=== PATIENT | female | born 1955 | race African-American/Black ===

== ENCOUNTER 2021-07-07 14:30 | Outpatient (RCR) | payer MEDICARE, SELFPAY ==
[2021-06-09 09:12] VITALS: BMI 32.2
[2021-06-09 09:32] VITALS: BMI 32.2
== END 2021-07-26 14:29 | disposition home or self-care (01) ==
LOC: ANHDMC 14:30
DX: E11.65 Type 2 diabetes mellitus with hyperglycemia (principal); Z71.89 Other specified counseling; Z71.3 Dietary counseling and surveillance
CPT/HCPCS: 97802; 97803; G0108; G0109

== ENCOUNTER 2021-09-30 14:35 | Outpatient (RCR) | payer MEDICARE, SELFPAY | END 2021-10-08 13:20 | disposition home or self-care (01) | LOC: ANHDMC 14:35 | PROVIDERS: PCP Internal Medicine Gastroenterology; Visit Provider Nurse Practitioner | DX: E11.65 Type 2 diabetes mellitus with hyperglycemia (principal); Z71.89 Other specified counseling | CPT/HCPCS: G0109 ==

== ENCOUNTER 2023-10-16 14:39 | Outpatient (CLI) | payer MEDICARE, SELFPAY ==
--- NOTE | ~2023-10-16 | DEXA_ITS ---
Bone Density Report Name: MEGAN MCCOY Age: 67 Sex: Female Ethnicity: White Date of : 1955 Indication: postmenopausal; screening for osteoporosis; hysterectomy; Referring Provider: RICHIE ESPINOSA Study: Bone densitometry was performed. Exam Date: October 16, 2023 Accession number: [id number] Bone Density: Region BMD T-score Z-score Classification AP Spine(L1-L4) 0.782 -2.4 -0.4 Osteopenia Femoral Neck (Left) 0.551 -2.7 -1.0 Osteoporosis Total Hip (Left) 0.688 -2.1 -0.6 Osteopenia Femoral Neck (Right) 0.533 -2.8 -1.1 Osteoporosis Total Hip (Right) 0.636 -2.5 -1.1 Osteoporosis Total Hip Mean 0.662 -2.3 -0.9 Osteopenia World Health Organization criteria for BMD impression classify patients as: Normal (T-score at or above -1.0), Osteopenia (T-score between -1.0 and -2.5), or Osteoporosis (T-score at or below -2.5). 10-year Fracture Risk: FRAX not reported because: Some T-score for Spine Total or Hip Total or Femoral Neck at or below -2.5 Clinical Information Provided by Patient: Has used the following medications: Vitamin D Has the following medical conditions: Hysterectomy Patient maximum height was 62.0 Does not regularly consume dairy products Drinks caffeinated beverages Onset of menses at age 8 Number of children 1 Impression: The patient has osteoporosis, based on the Right Femoral Neck T-score. Discussion: INCREASED RISK OF FRACTURE. BONE DENSITY IS UNDESIRABLY LOW AT ONE OR MORE SKELETAL SITES, CONSISTENT WITH POSTMENOPAUSAL OSTEOPOROSIS. This patient's lowest T-score meets the World Health Organization's (WHO) criteria for osteoporosis at one or more sites (T-score -2.5 or below). In untreated patients, the risk of osteoporotic fracture increases approximately two-fold for each 1.0 SD decrease in T-score. Low bone density is not the only risk factor for fracture; also consider factors such as patient's age, frailty or poor health, risk of falling, risk of injury, previous osteoporotic fracture, family history of osteoporosis, cigarette smoking, low body weight, etc. Not everyone with low bone mineral density has osteoporosis; osteomalacia and other metabolic bone disorders should also be considered. Patients who have osteoporosis should be evaluated for specific diseases and conditions (secondary causes) that may cause or contribute to bone loss. The [place] [employer] Clinical Endocrinologists (AACE) and National Osteoporosis Foundation (NOF) recommend pharmacologic intervention for all postmenopausal women whose T-score is in this range. The patient should follow a healthful lifestyle (good nutrition with adequate calcium and vitamin D, and appropriate weight-bearing exercise). Follow-Up: Consider a repeat BMD and Vertebral Fracture Assessment (VFA) exam in 2 years or soone
== END 2023-10-16 14:40 | disposition home or self-care (01) ==
LOC: ANHIMG 14:42
PROVIDERS: PCP Internal Medicine Gastroenterology; Visit Provider Internal Medicine Endocrinology, Diabetes & Metabolism
DX: Z78.0 Asymptomatic menopausal state (principal)
CPT/HCPCS: 77080

== ENCOUNTER 2024-11-15 07:41 | Outpatient (CLI) | payer MEDICARE, SELFPAY ==
--- NOTE | ~2024-11-15 | NM_ITS ---
EXAMINATION: NM parathyroid w imaging DATE: 11/15/2024 16:04 INDICATION: Hyperparathyroidism TECHNIQUE: 20.3 mCi Tc99m sestamibi (Cardiolite) was administered by intravenous route. Anterior images of the neck were obtained at 10 minutes and 2 hours. Additional delayed SPECT imaging was obtained and reformatted in coronal, sagittal and axial planes. COMPARISON: None. FINDINGS/IMPRESSION: There is no focus of persistent activity in the area of the thyroid or mediastinum to suggest parathyroid adenoma. Reviewed, dictated and finalized at location A.
--- OUTSIDE RECORDS SUMMARY | 2024-11-15 07:46 | XMS_ITS | Encounter Summary ---
Author Organization [facility] Address [address] [place] [address] Care Team Providers Care Purchase Request Editor Name Role Phone Unavailable Primary Care Provider Unavailabl e Encounter Details Date Type Department Care Team (Late st Contact Info) Description 04/09/2003 Outpatient Historical [facility] [place] [facility] [address] [place] [address] Jason Dao MD [address] [facility] [address] [place] [address] Social History Tobacco Use Types Packs/Day Years Used Date Smoking Tobacco: Never Assessed Comments Unknown Sex and Gender Information Value Date Recorded Sex Assigned at Not on file Legal Sex Female 2:56 AM INVISIBLE BRACES ORTHODONTIST Gender Identity Not on file Sexual Orientation Not on file documented as of this encounter Plan of Treatment Not on file documented as of this encounter Visit Diagnoses Not on filedocumented in this encounter
--- OUTSIDE RECORDS SUMMARY | 2024-11-15 07:46 | XMS_ITS | Encounter Summary ---
Author Organization [facility] Address [address] [place] [address] Care Team Providers Care Form Setter Steel Forms Name Role Phone Vijay Grier MD Unavailable [phone] Iggy Grier MD Primary Care Provider [phone] Reason for Visit * Reason Onset Date Comments MEDICATION REFILL 01/16/2023 Encounter Details Date Type Department Care Team (Late st Contact Info) Description 01/16/2023 Telephone [facility] - GAS LINE SERVICER [address] [facility] [address] [place] [address] Bethany Barney MD [address] [facility] [address] [place] [address] MEDICATION REFILL Social History Tobacco Use Types Packs/Day Years Used Date Smoking Tobacco: Never Smokeless Tobacco: Never Alcohol Use Standard Drinks/Week Comments No 0 (1 standard drink = 0.6 oz pur e alcohol) Comments No Sex and Gender Information Value Date Recorded Sex Assigned at Female 04/05/2021 11:38 AM OFFICE ASSOCIATE Legal Sex Female 6:19 AM OFFICE ASSOCIATE Gender Identity Female 04/05/2021 11:38 AM OFFICE ASSOCIATE Sexual Orientation Straight 04/05/2021 11 :38 AM OFFICE ASSOCIATE documented as of this encounter Miscellaneous Notes * Telephone Encounter - Bethany Barney MD - 01/17/2023 3:25 PM OFFICE ASSOCIATE Reviewed and agree. Bethany Barney MD CE ASSOCIATE * Telephone Encounter - Beto Salinas RN - 01/16/2023 11:41 AM OFFICE ASSOCIATE RN returned call to pt. Pt wanting refill on outbreak dose for Valtrex. Needs it to be 90d supply since sent to [facility] Refill Request Approved Elizabeth Hickey Nilorosanna CARINA:02/03/21Jan due: NOV scheduled: 04/12/2023 LRF: 05/06/2022 Qty Disp:18 # of refills: 1 Allergies: Allergies Allergen Reactions ??? Sulfa Drugs Rash Pended Medication Order: Requested Prescriptions Signed Prescriptions Disp Refills ??? valACYclovir (Valtrex) 500 MG tablet 18 tablet 0 Sig: TAKE 1 TABLET BY MOUTH TWICE DAILY FOR 3 DAYS DURING OUTBREAKS Authorizing Provider: BETHANY BARNEY Ordering User: BETO SALINAS CE ASSOCIATE * Telephone Encounter - Pham Fuentes - 01/16/2023 11:32 AM CST Pt took next available of 24 for her annual visit and for as med check. She is needing a med refill until then.Would like someone to reach out to inform her if the medication can be filled untilthen CE ASSOCIATE documented in this encounter Plan of Treatment Upcoming Encounters Date Type Department Care Team (Late st Contact Info) Description 04/22/2025 10:00 AM OFFICE ASSOCIATE Office Visit [facility] - GAS LINE SERVICER [address] [facility] [address] [place] [address] Bethany Barney MD [address] [facility] [address] [place] [address] documented as of this encounter Visit Diagnoses Not on filedocumented in this encounter Care Teams Form Setter Steel Forms Relationship Specialty Start Date End Date Vijay Grier MD PCP - OBGYN Obstetrics 06/29/12 Iggy Grier MD PCP - General Gastroenterology 07/25/13 documented as of this encounter
--- OUTSIDE RECORDS SUMMARY | 2024-11-15 07:46 | XMS_ITS | Encounter Summary ---
Author Organization [facility] Address [address] [place] [address] Care Team Providers Care Transmission Mechanic Name Role Phone Iggy Grier MD Primary Care Provider Unavail able Facundo Mendoza MD Unavailable [phone] Skyla Thompson MD Unavailable [phone] Denny Martinez MD Unavailable [phone] Marvel Del Rio MD Unavailable [phone] Maria G Sauer MD Unavailable [phone] Fernandez King MD Primary Care Provider [phone] Encounter Details Date Type Department Care Team (Late st Contact Info) Description 05/18/2018 [facility] at [address] [address] Kenyetta Coe MA Social History Tobacco Use Types Packs/Day Years Used Date Smoking Tobacco: Former Smokeless Tobacco: Never Alcohol Use Standard Drinks/Week Comments No 0 (1 standard drink = 0.6 oz pur e alcohol) AUDIT-C Answer Date Recorded Frequency of Alcohol Consumption Never 05/18/2018 Average Number of Drinks Not on file 019 Frequency of Binge Drinking Not on file 10/2018 Comments Unknown Sex and Gender Information Value Date Recorded Sex Assigned at Female 05/06/2024 10:24 AM TOTER Legal Sex Female 8:08 PM CDT Gender Identity Not on file Sexual Orientation Not on file documented as of this encounter Functional Status documented as of this encounter Plan of Treatment Upcoming Encounters Date Type Department Care Team (Late st Contact Info) Description 12/12/2024 11:40 AM CDT Office Visit [facility] [address] [place] [address] Parish Merritt MD [address] [facility] [place] [address] 01/02/2025 11:30 AM CDT Office Visit [facility] [address] [facility] [place] [address] Karlee Rangel APRN [address] [facility]. [address] [place] [address] 02/12/2025 9:20 AM TOTER Office Visit [facility] Family Medicine - [place] [address] [place] [address] Fernandez King MD [address] [place] [address] documented as of this encounter Procedures Procedure Name Priority Date/Time Associated Diagnosis Comments CBC (OUTSIDE LAB) Routine 08/28/2017 FREE T3 Routine 08/28/2017 COMPREHENSIVE METABOLIC PANEL Routine 08/28/2017 LIPID PANEL Routine 08/28/2017 HEMOGLOBIN, GLYCOSYLATED Routine 08/28/2017 documented in this encounter Results * COMPREHENSIVE METABOLIC PANEL (08/28/2017) Pathologist [facility] SODIUM S/P/B 141 POTASSIUM S/P/B 4.2 CO2 25 CHLORIDE S/P/B 99 GLUCOSE 135 mg/dL CALCIUM S/P/B 10.0 BUN 13 CREATININE S/P/B 0.81 0.5 - 1.0 EGFR AFR. AMER. 90 <=90 EGFR NON-AFR. AMER. 78 <=90 ALKALINE PHOSPHATASE S/P/B 129 ALT 42 AST 29 BILIRUBIN TOTAL S/P/B 0.4 ALBUMIN S/P/B 4.5 3.5 - 5.0 TOTAL PROTEIN S/P/B 7.4 GLOBULIN 2.9 08/28/2017 us Doc [facility] Final Result * CBC (OUTSIDE LAB) (08/28/2017) [facility] WBC 8.4 HGB 13.7 HCT 42.5 PLT 287 08/28/2017 us Doc [facility]-OUTSIDE/ABSTRACTED Final Result * LIPID PANEL (08/28/2017) [facility] CHOLESTEROL 155 HDL 32 TRIGLYCERIDES 324 DIRECT LDL 73 08/28/2017 us Doc [facility] Final Result * HEMOGLOBIN, GLYCOSYLATED (08/28/2017) [facility] HGB A1C 6.9 08/28/2017 us Doc [facility] Final Result * FREE T3 (08/28/2017) [facility] FREE T3 7.5 08/28/2017 us Doc [facility] Edited Resul t - Final documented in this encounter Visit Diagnoses Not on filedocumented in this encounter Care Teams Transmission Mechanic Relationship Specialty Start Date End Date Iggy Grier MD PCP - General INTERNAL MEDICINE 04/25/18 11/12/24 Fernandez King MD [facility] [place] [phone] PCP - General FAMILY PRACTICE 11/13/24 Facundo Mendoza MD [facility] CARDIOVASCULAR DISEASE 05/09/18 04/17/19 Skyla Thompson MD Consulting Physician ENDOCRINOLOGY 06/11/18 08/10/18 Denny Martinez MD [address] [address] Consulting Physician ENDOCRINOLOGY 10/11/18 Marvel Del Rio MD [address] [facility] [address] [place] [phone] [facility] CARDIOVASCULAR DISEASE 04/18/19 Maria G Sauer MD [address] [facility] [address] [place] [phone] INTERNAL MEDICINE 10/30/23 documented as of this encounter
--- OUTSIDE RECORDS SUMMARY | 2024-11-15 07:46 | XMS_ITS | Encounter Summary ---
Author Organization [facility] Address [address] [place] [address] Care Team Providers Care Director Of Women'S Services Name Role Phone Vijay Grier MD Unavailable [phone] Iggy Grier MD Primary Care Provider [phone] Reason for Visit * Reason Comments Refill Request Encounter Details Date Type Department Care Team (Late Contact Info) Description 08/26/2019 Refill [facility] [address] [place], [place] [id number] Bethany Barney MD [address] [address] Refill Request Social History Tobacco Use Types Packs/Day Years Used Date Smoking Tobacco: Never Smokeless Tobacco: Never Alcohol Use Standard Drinks/Week Comments No 0 (1 standard drink = 0.6 oz pur e alcohol) Comments No Sex and Gender Information Value Date Recorded Sex Assigned at Female 04/05/2021 11:38 AM REAL ESTATE SPECIALIST Legal Sex Female 6:19 AM REAL ESTATE SPECIALIST Gender Identity Female 04/05/2021 11:38 AM REAL ESTATE SPECIALIST Sexual Orientation Straight 04/05/2021 11 :38 AM REAL ESTATE SPECIALIST documented as of this encounter Plan of Treatment Upcoming Encounters Date Type Department Care Team ([facility] Contact Info) Description 04/22/2025 10:00 AM REAL ESTATE SPECIALIST Office Visit [facility] - HEALTH SAFETY COORDINATOR [address] [facility] [address] [place] [address] Bethany Barney MD [address] [facility] [address] [place] [address] documented as of this encounter Visit Diagnoses Not on filedocumented in this encounter Care Teams Director Of Women'S Services Relationship Specialty Start Date End Date Vijay Grier MD PCP - OBGYN Obstetrics 06/29/12 Iggy Grier MD PCP - General Gastroenterology 07/25/13 documented as of this encounter
--- OUTSIDE RECORDS SUMMARY | 2024-11-15 07:46 | XMS_ITS | Encounter Summary ---
Author Organization [facility] Address [address] [place] [address] Care Team Providers Care Blind Aide Name Role Phone Unavailable Primary Care Provider Unavailabl e Encounter Details Date Type Department Care Team (Late st Contact Info) Description 06/09/2003 Outpatient Historical [facility] Internal Medicine [address] [place] [address] Jason Dao MD [address] [facility] [address] [place] [address] Social History Tobacco Use Types Packs/Day Years Used Date Smoking Tobacco: Never Assessed Comments Unknown Sex and Gender Information Value Date Recorded Sex Assigned at Not on file Legal Sex Female 2:56 AM PRESSING MACHINE TENDER Gender Identity Not on file Sexual Orientation Not on file documented as of this encounter Plan of Treatment Not on file documented as of this encounter Visit Diagnoses Not on filedocumented in this encounter
--- OUTSIDE RECORDS SUMMARY | 2024-11-15 07:46 | XMS_ITS | Encounter Summary ---
Author Organization [facility] Address [address] [place] [address] Care Team Providers Care Asbestos Wire Finisher Name Role Phone Unavailable Primary Care Provider Unavailabl e Encounter Details Date Type Department Care Team (Late st Contact Info) Description 04/09/2003 Outpatient Historical [facility] Internal Medicine [address] [place] [address] Jason Dao MD [address] [facility] [address] [place] [address] Social History Tobacco Use Types Packs/Day Years Used Date Smoking Tobacco: Never Assessed Comments Unknown Sex and Gender Information Value Date Recorded Sex Assigned at Not on file Legal Sex Female 2:56 AM MEDICAL BILLING REPRESENTATIVE Gender Identity Not on file Sexual Orientation Not on file documented as of this encounter Plan of Treatment Not on file documented as of this encounter Visit Diagnoses Not on filedocumented in this encounter
--- OUTSIDE RECORDS SUMMARY | 2024-11-15 07:46 | XMS_ITS | Clinical Summary ---
Author Organization [place] [address] [facility] Address [address] [place] [address] Care Team Providers Care Blasting Contract Man Name Role Phone Iggy Grier MD Primary Care Provider Allergies Active Allergy Reactions Criticality Noted Date Comments Lisinopril Shortness of breath High 05/24/2016 Breathing Difficulty Sulfa (Sulfonamide Antibiotics) Rash Reaction: Rash, Medications dilTIAZem CD/XR/XT (CARTIA XT) 120 mg 24 hr capsule Take 1 capsule (120 mg total) by mouth daily Active fluticasone propionate (FLONASE) 50 mcg/actuation nasal spray Administer 1 spray into affected nostril(s) as needed Active nitroglycerin (NITROSTAT) 0.[address] 1 tablet (0.4 mg total) under the tongue daily 9 Active isosorbide mononitrate ER (IMDUR) 30 mg 24 hr tablet Take 2 tablets (60 mg total) by mouth daily 1 Active semaglutide (Ozempic) 0.25 mg or 0.5 mg(2 mg/1.5 mL) pen injector injection Ozempic 0.25 mg or 0.5 mg (2 mg/1.5 mL) subcutaneous pen injector INJECT 0.5 MG UNDER THE SKIN EVERY WEEK DIRECTED 2 Active aspirin 81 mg enteric coated tablet Take 1 tablet (81 mg total) by mouth daily [address] (PROTONIX) 40 mg EC tablet Active valACYclovir (VALTREX) 500 mg tablet as needed 4 Active atorvastatin (LIPITOR) 40 mg tablet 4 Active Accu-Chek Janet Plus test strp strip 4 Active Accu-Chek Fastclix Lancet Drum misc 4 Active albuterol HFA (ProAir HFA) 90 mcg/actuation inhaler Inhale 2 puffs every 4 (four) hours as needed for wheezing or shortness of breath 8.5 g 5 4 025 Active acetaminophen (TYLENOL) 325 mg tabletIndication s:Spinal stenosis of lumbar region with neurogenic claudication Take 2 tablets (650 mg total) by mouth every 4 (four) hours as needed for pain 4 Active HYDROcodone-acet aminophen (NORCO) 5-325 mg per tabletIndication s:Spinal stenosis of lumbar region with neurogenic claudication Take 1 tablet by mouth every 4 (four) hours as needed for pain 30 tablet 4 Active Additional Information Patient not taking.Reported on 07/22/2024 levothyroxine (Synthroid) 50 mcg tabletIndication s:Hypothyroidism following radioiodine therapy Take 1 tablet (50 mcg total) by mouth daily 30 tablet 4 Active liothyronine (CYTOMEL) 5 mcg tabletIndication s:Hypothyroidism following radioiodine therapy Take 1 tablet (5 mcg total) by mouth daily 30 tablet 4 Active losartan (COZAAR) 100 mg tabletIndication s:Essential (primary) hypertension Take 1 tablet (100 mg total) by mouth daily 30 tablet 4 Active calcium carbonate-vitami n D3 1,250mg (500mg elemental) - 5 mcg (200 units) per tablet Take by mouth 4 Active methylPREDNISolo ne (MEDROL DOSEPACK) 4 mg Dosepack FOLLOW PACKAGE DIRECTIONS 5 Active methylPREDNISolo ne (MEDROL) 4 mg tablet Take 1 tablet (4 mg total) by mouth 5 Active Active Problems Problem Noted Date Diagnosed Date Lung nodules 07/22/2024 History of myocardial infarction 12/19/2023 Spinal stenosis 12/19/2023 Assessment & Plan (12/25/2023 10:46 AM CDT): Status post extensive laminectomy, decompression, fusion to lumbar spine. Pain is well controlled with p.r.n. Tylenol, p.r.n. [place]. Incision stable. Pt felt stable for discharge to home with home health. Follow up with NS as scheduled Assessment & Plan (12/20/2023 2:12 PM CDT): Status post extensive laminectomy, decompression, fusion to lumbar spine. Pain is well controlled with p.r.n. Tylenol, p.r.n. [place]. Patient has been on Lyrica and gabapentin in the past but did not like the way it made her feel and did not find that it was beneficial. Incision is stable, she is making progress in therapy. Patient has a follow-up with surgeon on 12/27/2023 Assessment & Plan (12/19/2023 8:30 AM CDT): She has recently completed a bilateral L3 laminectomy and a redo of an L4 laminectomy. We will continue Tylenol 650 mg every 6 hours p.r.n. pain and [place] 1 tablet every 4 hours p.r.n. breakthrough pain. We will consult Physical and Occupational therapy to evaluate, advised, and treat. Our goal will be a safe transfer to the community setting following improvement Shortness of breath 07/18/2023 Diabetic peripheral neuropathy 04/26/2021 Essential (primary) hypertension 04/06/2020 Assessment & Plan (12/25/2023 10:40 AM CDT): BP stable, continue losartan 100 mg daily, isosorbide 60 mg daily, diltiazem 120 mg q.h.s. Assessment & Plan (12/20/2023 1:50 PM CDT): Blood pressure is well controlled, continue losartan 100 mg daily, isosorbide 60 mg daily, diltiazem 120 mg q.h.s. Assessment & Plan (12/19/2023 8:23 AM CDT): Chronic stable. Continue diltiazem 120 mg HS, losartan 100 mg daily Osteoporosis 12/12/2018 Assessment & Plan (12/19/2023 8:24 AM CDT): Chronic and stable. Continue calcium with vitamin-D and cholecalciferol Hypothyroidism following radioiodine therapy 10/2018 Assessment & Plan (12/25/2023 10:42 AM CDT): Stable, continue levothyroxine and liothyronine Assessment & Plan (12/19/2023 8:24 AM CDT): Chronic and stable. Continue levothyroxine and Cytomel Mixed hyperlipidemia 05/18/2018 Assessment & Plan (12/19/2023 8:23 AM CDT): Chronic stable. Dietary to follow. Continue atorvastatin 40 mg daily Anxiety 02/26/2015 Assessment & Plan (12/25/2023 10:44 AM CDT): Per pt, she does not use diazepam, will stop Assessment & Plan (12/20/2023 1:50 PM CDT): Mood stable, continue diazepam p.r.n., we will DC after 14 days if there is no use. Assessment & Plan (12/19/2023 8:25 AM CDT): Chronic and stable. Continue diazepam 5 mg every 8 hours p.r.n. Gastroesophageal reflux disease 02/26/2015 Assessment & Plan (12/25/2023 10:43 AM CDT): Pt wants omeprazole stopped, pt denies symptoms Assessment & Plan (12/19/2023 8:25 AM CDT): Chronic and stable continue omeprazole Diabetes mellitus 02/26/2015 Assessment & Plan (12/25/2023 10:41 AM CDT): A1c 7.3. BS controlled, continue ozempic at home. Stop SSI at discharge Assessment & Plan (12/19/2023 8:25 AM CDT): Chronic and currently stable. Monitor point of care glucose and follow up labs were ordered. Continue insulin lispro and semaglutide Disease of thyroid gland 02/26/2015 Weakness 02/26/2015 Assessment & Plan (12/19/2023 8:30 AM CDT): I endorse admission to fdc care. The patient is at risk of injury, illness and a requirement for a higher level of care without this service. The patient needs assistance from the nurses and care team for all activities of daily living including dressing, hygeine of person and toilet, safe transfer and mobility, dietary needs, medication administration, and grooming. The patient will need physical and occupational therapy to progress to a safer level of care. 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 Continue statin, imdur, BP management Assessment & Plan (12/19/2023 8:23 AM CDT): Chronic stable. Continue atorvastatin, Imdur Angina pectoris 02/26/2015 Neuropathic pain syndrome (non-herpetic) 015 Chronic back pain 02/26/2015 Chronic pain 02/26/2015 Arthropathy of lumbar facet joint 02/26/2015 Degeneration of intervertebral disc of lumbar re gion 02/26/2015 Lumbar radiculopathy 02/26/2015 Assessment & Plan (12/19/2023 8:30 AM CDT): See plan comments spinal stenosis Solitary lung nodule Resolved Problems Problem Noted Date Diagnosed Date Resolved Date Dyslipidemia 04/26/2021 12/19/2023 Encounters Date Type Department Care Team Description 10/25/2024 Orders Only [facility] Medicine Pulmonary [address] 8[address] [place] [address] [place] [address] Barrington Bailey MD Lung nodules (Primary Dx); Mild intermittent asthma without complication; Shortness of breath 10/24/2024 12:20 PM CDT - 10/24/2024 11:59 PM CDT Hospital Encounter [facility] [address] [place] [address] Barrington Bailey MD Lung nodules; Shortness of breath Discharge Disposition: Discharge to home or self care 10/24/2024 Telephone [facility] Medicine Pulmonary [address] [place] [address] Barrington Bailey MD from Last 3 Months Surgical History Surgery Date Site/Laterality Comments [place] CORRJ HLX VLGS BNCTY SESM DC RESCJ PROX PHLX BASE Bunion Correction By Cheilectomy - (Added by Conv) [place] TOTAL ABDOMINAL HYSTERECT W/WO RMVL TUBE OVARY Hysterectomy - (Added by Conv) BACK SURGERY Back Surgery - (Added by Conv) [place] NJX AA&/STRD TFRML EPI LUMBAR/SACRAL 1 LEVEL Corticosteroid Inj Transforaminal Approach Lumbar W/ Fluoroscopic Guidance - (Added by Conv) NERVE BLOCK Nerve Block Paravertebral Facet Joint - 05/18/15- Lumbar Medial Branch Block, Bilateral, L3, L4, L5, S1. (Added by Conv) Medical History Medical History Date Comments Allergic rhinitis GERD (gastroesophageal reflux disease) Sinusitis Thyroid disease Family History Medical History Relation Name Comments Diabetes Maternal Grandfather Diabetes Maternal Grandmother Diabetes Mother Diabetes Sister Relation Name Status Comments Maternal Grandfather Maternal Grandmother Mother Sister Social History Tobacco Use Types Packs/Day Years Used Date Smoking Tobacco: Never Smokeless Tobacco: Never Tobacco Cessation:Counseling Given: Not Answered Alcohol Use Standard Drinks/Week Comments Never 0 (1 standard drink = 0.6 oz pur e alcohol) AUDIT-C Answer Date Recorded Frequency of Alcohol Consumption Never 01/04/2019 Average Number of Drinks Not on file 019 Frequency of Binge Drinking Not on file 12/12 Comments Unknown Sex and Gender Information Value Date Recorded Sex Assigned at Not on file Legal Sex Female 1:00 AM 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 Gender Identity Female 06/01/2022 8:10 PM CDT Sexual Orientation Not on file Obstetrics History Last Filed Vital Signs Vital Sign Reading Time Taken Comments Blood Pressure 173/81 07/22/2024 9:28 AM CDT fee ls ok Pulse 59 07/22/2024 9:28 AM CDT Temperature 36 C (96.8 F) 07/22/2024 9:28 AM CDT Respiratory Rate 18 07/22/2024 9:28 AM CDT Oxygen Saturation 98% 07/22/2024 9:28 AM CDT Inhaled Oxygen Concentration - - Weight 73.5 kg (162 lb) 07/22/2024 9:28 AM CDT Height 156.2 cm (5' 1.5) 07/22/2024 9:28 AM CDT Body Mass Index 30.11 07/22/2024 9:28 AM CDT Plan of Treatment Health Maintenance Due Date Last Done Comments Albumin Creatinine Ratio, Urine 1954 Colon Cancer Screening-Colonoscopy 1954 Depression Screening 1954 Fall Risk Assessment 1954 Hemoglobin A1C 1954 Hepatitis C Screening 1954 Dilated Eye Exam 1954 Foot Exam 1954 DTaP/Tdap/Td Vaccine (1 - Tdap) 1965 Hepatitis B Screening 1972 Pneumococcal vaccine 65+ (1 of 2 - PCV) 1973 Zoster Vaccine (1 of 2) 2004 Well Visit 65+ 10/29/2019 Osteoporosis Screening-Bone Density Scan 10/01/2020 10/01/2018, 10/01/2018 Lipid Panel 07/04/2024 07/05/2023, 04/01/2020 Covid-19 Vaccine (3 - 2024-2 6 season) 2024 05/26/2020, 05/01/2020 Influenza Vaccine (#1) 2024 eGFR 12/21/2024 12/22/2023 Breast Cancer Screening-Mammogram 05/24/2025 05/24/2024, 05/24/2024, 05/11/2023, Additional history exists Procedures Procedure Name Priority Date/Time Associated Diagnosis Comments CT CHEST WO CONTRAST Schedule Routine, Read Routine (OP Routine) 10/24/2024 1:15 PM CDT Lung nodules Shortness of breath EGFR Routine 12/22/2023 8:24 AM CDT DEXA AXIAL SKELETON BONE DENSITY 1 OR MORE SITES Schedule Routine, Read Routine (OP Routine) 10/01/2018 10:12 AM CDT Screening for osteoporosis from Last 3 Months or Most Recently Relevant to Health Maintenance Results * CT chest without contrast (10/24/2024 1:15 PM CDT) Anatomical Region Laterality Modality Body N/A Computed Tomogra phy 10/24/2024 1:38 PM CDT Impressions 10/24/2024 1:43 PM CDT 1. No significant change in right middle lobe nodule. Additional sub 6mm pulmonary nodules are also stable. 2. New focus of tree-in-bud nodularity in the right upper lobe favored to represent atypical myobacterial infection Dictated by: Ana Lilia Espinal M.D. The radiology attending physician has personally reviewed this study, and had reviewed and/or edited this written report and agrees with it. Electronically signed by: Caity Neff M.D. Narrative 10/24/2024 1:43 PM CDT EXAMINATION: Computed tomography of the chest without intravenous contrast HISTORY: Following a reported pulmonary nodule TECHNIQUE: Transaxial computed tomographic images of the chest were obtained without intravenous contrast according to the standard protocol. COMPARISON: CT chest without contrast dated 07/22/2024 FINDINGS: In the right middle lobe there is a solid nodule, not significantly changed measuring 9 x 7 mm (TP 347.0). Scattered stable sub-6mm pulmonary nodules. For example, at TP 259.0 in the posterior right upper lobe. New focus of tree-in-bud nodularity in the anterior right upper lobe compared to 07/22/2024 favored to represent atypical mycobacterial infection. No suspicious thoracic lymphadenopathy. Heart size is normal without pericardial effusion. Thoracic aorta and main pulmonary artery normal in caliber. Normal noncontrast appearance of the liver, pancreas, spleen, and partially imaged bilateral kidneys. Mild hypertrophy of the bilateral adrenals, likely benign. No suspicious osseous lesion. Procedure Note Caity Neff MD - 10/24/2024 EXAMINATION: Computed tomography of the chest without intravenous contrast HISTORY: Following a reported pulmonary nodule TECHNIQUE: Transaxial computed tomographic images of the chest were obtained without intravenous contrast according to the standard protocol. COMPARISON: CT chest without contrast dated 07/22/2024 FINDINGS: In the right middle lobe there is a solid nodule, not significantly changed measuring 9 x 7 mm (TP 347.0). Scattered stable sub-6mm pulmonary nodules. For example, at TP 259.0 in the posterior right upper lobe. New focus of tree-in-bud nodularity in the anterior right upper lobe compared to 07/22/2024 favored to represent atypical mycobacterial infection. No suspicious thoracic lymphadenopathy. Heart size is normal without pericardial effusion. Thoracic aorta and main pulmonary artery normal in caliber. Normal noncontrast appearance of the liver, pancreas, spleen, and partially imaged bilateral kidneys. Mild hypertrophy of the bilateral adrenals, likely benign. No suspicious osseous lesion. IMPRESSION: 1. No significant change in right middle lobe nodule. Additional sub 6mm pulmonary nodules are also stable. 2. New focus of tree-in-bud nodularity in the right upper lobe favored to represent atypical myobacterial infection Dictated by: Ana Lilia Espinal M.D. The radiology attending physician has personally reviewed this study, and had reviewed and/or edited this written report and agrees with it. Electronically signed by: Caity Neff M.D. Barrington Bailey MD IMG CT PROCEDURES Maegan l Result * eGFR (12/22/2023 8:24 AM CDT) eGFR >90 >=60 mL/min/1. 73 m2 [facility] Comment: Interpretive Data Reference Interval Normal >/= 90 mL/min/1.73m2 Mildly decreased* 60 - 89 mL/min/1.73m2 Mildly to moderately decreased 45 - 59 mL/min/1.73m2 Moderately to severely decreased 30 - 44 mL/min/1.73m2 Severely decreased 15 - 29 mL/min/1.73m2 Kidney Failure < 15 mL/min/1.73m2 *Relative to young adult level Estimated glomerular filtration rate is determined by the 2020 CKD-EPI equation recommended by the National Kidney Foundation (A Unifying Approach to GFR Estimation: Recommendations of the NKF-ASK Task Force on Reassessing the Inclusion of Race in Diagnosing Kidney Disease, JASN 2020). The CKD-EPI equation should not be used for patients with unstable renal function and has not been validated in children and those over 70. Current interpretive data was last reviewed 2021. [facility], [address] [place] [address]., [id number] Blood 12/22/2023 8:24 AM CDT 12/22/2023 8:56 AM CDT us Basilio Jensen MD LAB BLOOD ORDERABLES Final R esult [facility]OSSEIN [address] [place] [address] * Dexa Axial Skeleton Bone Density 1 or 2 Site (10/01/2018 10:12 AM CDT) Anatomical Region Laterality Modality Body N/A Digital Radiogra phy 10/01/2018 11:2 5 AM CDT Impressions 10/01/2018 1:31 PM CDT 1. The bone mineral density of the lumbar spine is moderately decreased. 2. The bone mineral density of the left femoral neck is mildly decreased. 3. The bone mineral density of the left total hip is mildly decreased. 4. Overall, the above findings are diagnostic of osteoporosis by WHO criteria. 5. Based on the FRAX fracture risk model, the 10-year probability for major osteoporotic fracture is 5.0% and that for hip fracture is 0.8%. This 10-year fracture risk estimate was calculated using the risk factors noted in the history above, along with the femoral neck bone density. FRAX is intended to help guide treatment decisions in men over age 50 and postmenopausal women with low bone mass (osteopenia). The National Osteoporosis Foundation (NOF) recommends that FDA-approved medical therapies be considered in postmenopausal women and men age 50 years and older with osteoporosis and those with low bone mass whose 10-year fracture probability by FRAX is >= 20% for major osteoporotic fracture or >= 3% for hip fracture. However, all treatment decisions require clinical judgment and consideration of individual patient factors, including patient preferences, comorbidities, previous drug use, risk factors not captured in the FRAX model (e.g., frailty, falls, vitamin D deficiency, increased bone turnover, interval significant decline in bone density) and possible under- or overestimation of fracture risk by FRAX. General comments regarding interpretation of bone density measurements: A) In children, premenopausal woman and males under age 50 not at increased risk for fractures only Z-scores, not T-scores are used to indicate risk. A Z-score above -2.0 is defined as within the expected range for age and Z-score at or less than -2.0 is below the expected range for age. A Z-score below the expected range for age in a patient with recent fractures and/or chronic corticosteroid treatment is consistent with a diagnosis of osteoporosis. B) In post menopausal women and males over 50, comparison of the measured bone mineral density with the average value in young normal subjects (the T-score) has been found to be useful in assessing fracture risk. Fracture risk approximately doubles for each 1.0 standard deviation (SD) in individual's hip or spine bone mineral density is below the average value of young normal subjects. The World Health Organization (WHO) has defined T-scores of -1.0 to -2.5 as diagnostic of low bone mass (OSTEOPENIA), and T-scores of -2.5 or lower to be diagnostic of OSTEOPOROSIS, based on the site of lowest bone density. Note that there will be a change in reporting format and reference databases as patients move from the younger population (group A) to the older population (group B) The National Osteoporosis Foundation (www.nof.org) recommends adequate intake of calcium and vitamin D and regular weight-bearing exercise in all patients. They recommend pharmacologic treatment in postmenopausal women and men age 50 and older presenting with any of the followin) Osteoporosis, after appropriate evaluation to exclude secondary causes. 2) A hip or vertebral (clinical or radiographic) fracture, regardless of the bone density. 3) Low bone mass (Osteopenia) and one or more of: other prior fractures, secondary causes associated with high risk of fracture (such as glucocorticoid use or total immobilization), or computed high risk of fracture (10-yr probability of hip fracture >= 3% or a 10-yr probability of any major osteoporosis-related fracture >= 20% based on the [place].-adapted WHO algorithm), available at http://www.shef.ac.uk/FRAX). Dictated by: Sam Cool MD, PHD The radiology attending physician has personally reviewed this study, and had reviewed and/or edited this written report and agrees with it. Electronically signed by: Aster Cobb M.D. Narrative 10/01/2018 1:31 PM CDT BONE DENSITOMETRY OF THE SPINE AND HIP DATE OF STUDY: 10/01/2018 HISTORY: 62-year-old postmenopausal woman status post hysterectomy being evaluated for osteoporosis. She is being treated with vitamin D. Evaluate bone mineral density. Additional risk factors for fracture: Arthritis and hyperthyroidism. FINDINGS (SPINE): The bone mineral density of L3, L4 was assessed by dual-energy x-ray absorptiometry. The average bone mineral density within this region is 0.734 gm/sq-cm. This is 2.4 standard deviations below the mean of the average bone mineral density for age- and gender-matched subjects (the Z-score). It is 3.3 standard deviations below the mean peak bone mineral density in young adults (the T-score). FINDINGS (FEMORAL NECK): The bone mineral density of the left femoral neck was assessed by dual-energy x-ray absorptiometry. The average bone mineral density within the femoral neck region is 0.580 gm/sq-cm. This is 1.4 standard deviations below the mean of the average bone mineral density for age- and gender-matched subjects (the Z-score). It is 2.4 standard deviations below the mean peak bone mineral density in young adults (the T-score). FINDINGS (TOTAL HIP): The bone mineral density of the left hip was assessed by dual-energy x-ray absorptiometry. The average bone mineral density within the total hip region is 0.685 gm/sq-cm. This is 1.3 standard deviations below the mean of the average bone mineral density for age- and gender-matched subjects (the Z-score). It is 2.1 standard deviations below the mean peak bone mineral density in young adults (the T-score). SUMMARY OF CURRENT RESULTS: Region BMD T-score Z-score AP Spine (L3, L4) 0.734 -3.3 -2.4 Femoral Neck (Left) 0.580 -2.4 -1.4 Total Hip (Left) 0.685 -2.1 -1.3 Procedure Note Aster Cobb MD - 10/01/2018 BONE DENSITOMETRY OF THE SPINE AND HIP DATE OF STUDY: 10/01/2018 HISTORY: 62-year-old postmenopausal woman status post hysterectomy being evaluated for osteoporosis. She is being treated with vitamin D. Evaluate bone mineral density. Additional risk factors for fracture: Arthritis and hyperthyroidism. FINDINGS (SPINE): The bone mineral density of L3, L4 was assessed by dual-energy x-ray absorptiometry. The average bone mineral density within this region is 0.734 gm/sq-cm. This is 2.4 standard deviations below the mean of the average bone mineral density for age- and gender-matched subjects (the Z-score). It is 3.3 standard deviations below the mean peak bone mineral density in young adults (the T-score). FINDINGS (FEMORAL NECK): The bone mineral density of the left femoral neck was assessed by dual-energy x-ray absorptiometry. The average bone mineral density within the femoral neck region is 0.580 gm/sq-cm. This is 1.4 standard deviations below the mean of the average bone mineral density for age- and gender-matched subjects (the Z-score). It is 2.4 standard deviations below the mean peak bone mineral density in young adults (the T-score). FINDINGS (TOTAL HIP): The bone mineral density of the left hip was assessed by dual-energy x-ray absorptiometry. The average bone mineral density within the total hip region is 0.685 gm/sq-cm. This is 1.3 standard deviations below the mean of the average bone mineral density for age- and gender-matched subjects (the Z-score). It is 2.1 standard deviations below the mean peak bone mineral density in young adults (the T-score). SUMMARY OF CURRENT RESULTS: Region BMD T-score Z-score AP Spine (L3, L4) 0.734 -3.3 -2.4 Femoral Neck (Left) 0.580 -2.4 -1.4 Total Hip (Left) 0.685 -2.1 -1.3 IMPRESSION: 1. The bone mineral density of the lumbar spine is moderately decreased. 2. The bone mineral density of the left femoral neck is mildly decreased. 3. The bone mineral density of the left total hip is mildly decreased. 4. Overall, the above findings are diagnostic of osteoporosis by WHO criteria. 5. Based on the FRAX fracture risk model, the 10-year probability for major osteoporotic fracture is 5.0% and that for hip fracture is 0.8%. This 10-year fracture risk estimate was calculated using the risk factors noted in the history above, along with the femoral neck bone density. FRAX is intended to help guide treatment decisions in men over age 50 and postmenopausal women with low bone mass (osteopenia). The National Osteoporosis Foundation (NOF) recommends that FDA-approved medical therapies be considered in postmenopausal women and men age 50 years and older with osteoporosis and those with low bone mass whose 10-year fracture probability by FRAX is >= 20% for major osteoporotic fracture or >= 3% for hip fracture. However, all treatment decisions require clinical judgment and consideration of individual patient factors, including patient preferences, comorbidities, previous drug use, risk factors not captured in the FRAX model (e.g., frailty, falls, vitamin D deficiency, increased bone turnover, interval significant decline in bone density) and possible under- or overestimation of fracture risk by FRAX. General comments regarding interpretation of bone density measurements: A) In children, premenopausal woman and males under age 50 not at increased risk for fractures only Z-scores, not T-scores are used to indicate risk. A Z-score above -2.0 is defined as within the expected range for age and Z-score at or less than -2.0 is below the expected range for age. A Z-score below the expected range for age in a patient with recent fractures and/or chronic corticosteroid treatment is consistent with a diagnosis of osteoporosis. B) In post menopausal women and males over 50, comparison of the measured bone mineral density with the average value in young normal subjects (the T-score) has been found to be useful in assessing fracture risk. Fracture risk approximately doubles for each 1.0 standard deviation (SD) in individual's hip or spine bone mineral density is below the average value of young normal subjects. The World Health Organization (WHO) has defined T-scores of -1.0 to -2.5 as diagnostic of low bone mass (OSTEOPENIA), and T-scores of -2.5 or lower to be diagnostic of OSTEOPOROSIS, based on the site of lowest bone density. Note that there will be a change in reporting format and reference databases as patients move from the younger population (group A) to the older population (group B) The National Osteoporosis Foundation (www.nof.org) recommends adequate intake of calcium and vitamin D and regular weight-bearing exercise in all patients. They recommend pharmacologic treatment in postmenopausal women and men age 50 and older presenting with any of the followin) Osteoporosis, after appropriate evaluation to exclude secondary causes. 2) A hip or vertebral (clinical or radiographic) fracture, regardless of the bone density. 3) Low bone mass (Osteopenia) and one or more of: other prior fractures, secondary causes associated with high risk of fracture (such as glucocorticoid use or total immobilization), or computed high risk of fracture (10-yr probability of hip fracture >= 3% or a 10-yr probability of any major osteoporosis-related fracture >= 20% based on the [place].-adapted WHO algorithm), available at http://www.shef.ac.uk/FRAX). Dictated by: Sam Cool MD, PHD The radiology attending physician has personally reviewed this study, and had reviewed and/or edited this written report and agrees with it. Electronically signed by: Aster Cobb M.D. Denny Martinez MD IMG DXA PROCEDURES Final Resu lt from Last 3 Months or Most Recently Relevant to Health Maintenance Insurance MEDICARE ADVANTAGE [facility] Address: [facility] [address] [place] [address] MEDICARE ADVANTAGE [facility] Address: [address] [address] [place] [address] Care Teams Blasting Contract Man Relationship Specialty Start Date End Date Iggy Grier MD [address] [address] PCP - General 08/17/18
--- OUTSIDE RECORDS SUMMARY | 2024-11-15 07:46 | XMS_ITS | Encounter Summary ---
Author Organization [facility] Address [address] [place] [address] Care Team Providers Care Talent Acquisition Associate Name Role Phone Unavailable Primary Care Provider Unavailabl e Encounter Details Date Type Department Care Team (Late st Contact Info) Description 11/25/2003 Outpatient Historical [facility] Internal Medicine 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
--- OUTSIDE RECORDS SUMMARY | 2024-11-15 07:46 | XMS_ITS | Encounter Summary ---
Author Organization [facility] Address [address] [place] [address] Care Team Providers Care Lead Loader Name Role Phone Iggy Grier MD Primary Care Provider Unavail able Denny Martinez MD Unavailable [phone] Marvel Del Rio MD Unavailable [phone] Maria G Sauer MD Unavailable Fernandez King MD Primary Care Provider [phone] Encounter Details Date Type Department Care Team (Late st Contact Info) Description 09/07/2022 MyChart Message Enc [facility] - [facility] [address] [place], [place] [id number] Michael, [facility] Provider Air Quality Message Social History Tobacco Use Types Packs/Day Years [...] Sex Assigned at Female 05/06/2024 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 Answer Date of Assessment Author Status No 12/13/2019 5:49 PM CDT Activ e * Do you have serious difficulty walking or climbing stairs? Answer Date of Assessment Author Status No 12/13/2019 5:49 PM CDT Michelle Montoya RN Active * Do you have difficulty dressing or bathing? Answer Date of Assessment Author Status No 12/13/2019 5:49 PM CDT Michelle Montoya RN Active * Because of a physical, mental, or emotional condition, do you have difficulty doing errands alone such as visiting a doctor's office or shopping? Answer Date of Assessment Author Status No 12/13/2019 5:49 PM CDMichelle Clemens RN Active documented as of this encounter Mental Status * Because of a physical, mental, or emotional condition, do you have serious difficulty concentrating, remembering, or making decisions? Answer Entry Date Author Status No 12/13/2019 5:49 PM CDMichelle Clemens RN Active documented in this encounter Plan of Treatment Upcoming Encounters Date Type Department Care Team (Late st Contact Info) Description 12/12/2024 11:40 AM CDT Office Visit [facility] Multispecialty [facility] - [facility] [address] [facility], [address] [place] [address] Parish Merritt MD [address] [place] [address] 01/02/2025 11:30 AM CDT Office Visit [facility] [facility] [address] [place] [address] Karlee Rangel APRN [facility] [address] [place] [address] 02/12/2025 9:20 AM MATHEMATICS FACULTY MEMBER Office Visit [facility] Family Medicine - [place] [address] [place] [address] Fernandez King MD [address] [place] [address] documented as of this encounter Goals Goal Patient Goal Type Associated Problems Recent Progress Patient-Stated? Author Family - family caregiver with be involved in care transitions and discharge planning General No Tiffanie Guzman, MARKETING AND COMMUNICATIONS OFFICER documented as of this encounter Visit Diagnoses Not on filedocumented in this encounter Care Teams Lead Loader Relationship Specialty Start Date End Date Iggy Grier MD PCP - General INTERNAL MEDICINE 04/25/18 11/12/24 Fernandez King MD [facility] [place] [address] PCP - General FAMILY PRACTICE 11/13/24 Denny Martinez MD [address] [address] Consulting Physician ENDOCRINOLOGY 10/11/18 Marvel Del Rio MD [address] [facility] [address] [place] [address] [place] Elevator Mechanic Apprentice CARDIOVASCULAR DISEASE 04/18/19 Maria G Sauer MD [address] [facility] [address] [place] [address] INTERNAL MEDICINE 10/30/23 documented as of this encounter
--- OUTSIDE RECORDS SUMMARY | 2024-11-15 07:46 | XMS_ITS | Clinical Summary ---
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 Gender Identity Not on file Sexual Orientation Not on file Plan of Treatment Health Maintenance Due Date Last Done Comments Hepatitis C Virus (HCV) Screening 1955 TdaP Immunization 1955 Cologuard 10/29/1999 Colonoscopy 10/29/1999 Colorectal Cancer Screening 10/29/1999 Immunochemical Fecal Occult Blood 10/29/1999 Pneumococcal Immunization (5 0+ years) (1 of 1 - PCV) 2004 Zoster Immunization (1 of 2) 2004 SARS-COV-2 Immunization (1 - 2023- season) 2023 Influenza Immunization (#1) 2024 Respiratory Syncytial Virus (RSV) Immunization (Adult) (1 - 1-dose 75+ series) 2029 Hepatitis B Immunization Aged Out No longer eligible based on patient's age to complete this topic Human Papillomavirus (HPV) Immunization Aged Out No longer eligible b ased on patient's age to complete this topic Meningococcal Immunization (ACWY) Aged Out No longer eligible based on patient's age to complete this topic Rotavirus Immunization Aged Out No lo nger eligible based on patient's age to complete this topic
--- OUTSIDE RECORDS SUMMARY | 2024-11-15 07:46 | XMS_ITS | Clinical Summary ---
Author Organization [facility] Address [address] [place] [address] Care Team Providers Care Client Services Assistant Name Role Phone Denny Martinez MD Unavailable [phone] Marvel Del Rio MD Unavailable [phone] Maria G Sauer MD Unavailable [phone] Fernandez King MD Primary Care Provider [phone] Allergies Active Allergy Reactions Criticality Noted Date Comments Lisinopril Shortness of Breath High 08/17/2016 Sulfa Antibiotics Rash Low 08/03/2009 Medications albuterol sulfate HFA 108 (90 Base) MCG/ACT inhaler Inhale 1-2 puffs into the lungs every 4 (four) hours as needed for Shortness of breath or Wheezing. 019 Active fluticasone propionate (FLONASE ALLERGY RELIEF) 50 MCG/ACT nasal spray 2 sprays by Each Nostril route daily as needed for Rhinitis or Allergies. 022 Active valACYclovir (VALTREX) 500 MG tablet Take 1 tablet (500 mg total) by mouth 2 (two) times daily as needed (outbreak). 024 Active nitroglycerin (NITROSTAT) 0.[address] 1 tablet (0.4 mg total) under the tongue every 5 (five) minutes as needed for Chest Pain (If taking 3rd dose, call 911.). 25 tablet 1 024 Active BONE STIMULATOR, DME,Indications: Spinal instabilities of lumbar region Wear 4 hours daily. Can break up into multiple sessions totaling 4 hours. 1 Device 024 Active liothyronine (CYTOMEL) 5 MCG Tab Take 1 tablet (5 mcg total) by mouth daily. 024 Active levothyroxine (SYNTHROID) 50 MCG tablet Take 1 tablet (50 mcg total) by mouth every morning. Active polyvinyl alcohol-povidone (CLEAR EYES NATURAL TEARS) 5-6 MG/ML ophthalmic solution 1 drop as needed for Dry eyes. Active isosorbide mononitrate ER (IMDUR) 60 MG 24 hr tablet TAKE 1 TABLET BY MOUTH DAILY 100 tablet 1 Active Lactobacillus (ACIDOPHILUS) 100 MG Cap Active atorvastatin (LIPITOR) 80 MG tablet Take 1 tablet (80 mg total) by mouth daily. Active vitamin D3, cholecalciferol, (VITAMIN D3 ULTRA STRENGTH) 125 mcg capsule Active amLODIPine (NORVASC) 5 MG tablet Take 1 tablet (5 mg total) by mouth daily. 30 tablet 3 025 Active semaglutide (OZEMPIC) 1 mg/dose injection (PEN)Indications :Diabetes Mellitus Inject 1 mg into the skin once a week. Indications: Diabetes Active losartan 100 MG tablet Take 1 tablet (100 mg total) by mouth daily. 018 2024 Discontinued atorvastatin 40 MG tablet Take 1 tablet (40 mg total) by mouth nightly at bedtime. 30 tablet 020 2024 Discontinued OZEMPIC 0.25/0.5 MG/DOSE 2 MG/1.5ML injection (PEN) Inject 0.5 mg into the skin every 7 days. Sundays 022 2024 Discontinued(T herapy completed) probiotic (FLORAJEN3) Cap capsule Take 1 capsule by mouth 3 (three) times daily with meals. 2024 Discontinued(T herapy completed) vitamin D3, cholecalciferol, 125 mcg capsule Take 1 capsule (125 mcg total) by mouth daily. 2024 Discontinued(T herapy completed) Turmeric 400 MG Cap 2024 Discontinued(T herapy completed) Misc. Devices MiscIndications: S/P lumbar fusion D/C [place] on 12/25/23 before patient leaves rehab. Use Steri-strip PRN after jose d are taken out. 1 each 024 2024 Discontinued(T herapy completed) methylPREDNISolo ne, DAVID, (MEDROL DOSEPAK) 4 MG tabletIndication s:S/P lumbar fusion,Acute midline low back pain without sciatica Take 1 tablet (4 mg total) by mouth see administration instructions. Follow package directions 1 each 025 2024 Discontinued(T herapy completed) Calcium Carbonate Antacid 600 MG Chew Tab Chew 2 tablets by mouth daily. 2024 Discontinued(T herapy completed) dilTIAZem CD (CARDIZEM CD) 120 MG 24 hr capsule TAKE 1 CAPSULE BY MOUTH EVERY NIGHT AT BEDTIME 100 capsule 025 2024 Discontinued([facility]) semaglutide (OZEMPIC) 2 MG/1.5ML injection (PEN)Indications :Diabetes Mellitus Inject 1 mg into the skin every 7 days. Indications: Diabetes 2024 Discontinued Active Problems Problem Noted Date Diagnosed Date Disorder of peripheral nervous system 11/01/2024 Type 2 diabetes mellitus wit h diabetic neuropathy, unspecified ([facility]) 11/01/2024 Lung nodules 07/22/2024 S/P lumbar fusion 05/06/2024 Acute midline low back pain without sciatica History of myocardial infarction 12/19/2023 Spondylolisthesis of lumbar region 12/13/2023 Shortness of breath 07/18/2023 NSTEMI (non-ST elevated myoc ardial infarction) ([facility]) 07/04/2023 Diabetic peripheral neuropathy ([facility]) 04/26/2021 Fibromyalgia 03/13/2021 Essential (primary) hypertension 04/06/2020 Lymphadenopathy 04/29/2019 Overview (10/05/2022): CT of abdomen on 04/30/[address]atic LN, possibly incidental. Recommended to f/u with [address] of abdomen to rule out malignancy Mass of soft tissue 04/15/2019 Overview (10/05/2022): Left flank mass, US showed 7.8 cm subcutaneous mass with unclear etiology. CT of abdomen w/ contrast showed 4x8x5 cm simple lipoma of the left flank. 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 Anxiety 02/26/2015 Chronic pain 02/26/2015 Gastroesophageal reflux disease 02/26/2015 Memory impairment 02/26/2015 Neuropathic pain syndrome (non-herpetic) 015 Weakness 02/26/2015 Myocardial infarction ([facility]) Resolved Problems Problem Noted Date Diagnosed Date Resolved Date Type 2 diabetes mellitus ([facility]) 04/06/2022 11/13/2024 Dyslipidemia 04/26/2021 11/13/2024 Hypothyroidism 04/26/2021 11/13/2024 Abnormal thyroid function test 06/09/2018 11/13/2024 Mild intermittent asthma wit hout complication ([facility]) 05/18/2018 04/06/2022 Disease of thyroid gland 02/26/201505/2024 Angina pectoris 02/26/2015 04/06/2022 Chronic coronary artery disease 02/26/2015 07/11/2023 Encounters Date Type Department Care Team Description 11/13/2024 10:20 AM CDT Office Visit [address] [place] [address] Fernandez King MD Establish Care; Diabetes; Hypertension 11/13/2024 Telephone [place] [id number] [place] [address] Fernandez King MD Record Request 11/13/2024 Travel 11/01/2024 10:45 AM CDT Office Visit [facility] [address] [place] [address] Mansoor Agarwal MD Coronary Artery Disease (6 month) 11/01/2024 Travel from Last 3 Months Immunizations Immunization Administration Dates Next Due PFIZER COVID-19 (ORIGINAL FO RMULATION, PURPLE CAP) mRNA, LNP-S, PF, 30 MCG/0.3 ML DOSE 05/26/2020,05/03/2020,05/01/2020 Pneumococcal (Prevnar 20) 11/13/2024 Family History Medical History Relation Comments Diabetes Mother Uterine Cancer Mother Relation Status Comments Brother Alive Father Maternal Grandfather Maternal Grandmother Mother Paternal Grandfather Paternal Grandmother Sister Alive Social History Tobacco Use Types Packs/Day Years Used Date Smoking Tobacco: Never Passive Smoke Exposure: Never Smokeless Tobacco: Never Tobacco Cessation:Counseling Given: Yes Comments:Not consecutive smoker, smoked 2yr in late college and maybe a year in 1979 after of father Alcohol Use Standard Drinks/Week Comments Never 0 (1 standard drink = 0.6 oz pur e alcohol) B1300 Health Literacy Answer Date Recor ded How often do you need to hav e someone help you when you read instructions, pamphlets, or other written material from your doctor or pharmacy? Never 12/13/2023 [facility] Utilities Answer Date Recorded In the past 12 months has e [employer], gas, oil, or water [employer] threatened to shut off services in your home? No 12/13/2023 Humiliation, Afraid, Rape, and Kick questionnair e Answer Date Recorded Within the last year, have y ou been afraid of your partner or ex-partner? No 12/13/2023 Within the last year, have y ou been humiliated or emotionally abused in other ways by your partner or ex-partner? No Within the last year, have y ou been kicked, hit, slapped, or otherwise physically hurt by your partner or ex-partner? No 12/13/2023 Within the last year, have y ou been raped or forced to have any kind of sexual activity by your partner or ex-partner? No 12/13/2023 AUDIT-C Answer Date Recorded Frequency of Alcohol Consumption Never 05/18/2018 Average Number of Drinks Not on file 019 Frequency of Binge Drinking Not on file 10/2018 Overall Financial Resource Strain (CARDIA) Answe r Date Recorded How hard is it for you to pa y for the very basics like food, housing, medical care, and heating? Not hard at all 12/13/2023 PHQ-2 Answer Date Recorded Patient Health Questionnaire-2 Score 0 11/13/2024 [facility] - Occupational Stress Questionnaire Answer Date Recorded Do you feel stress - tense, restless, nervous, or anxious, or unable to sleep at night because your mind is troubled all the time - these days? Not at all 12/13/2023 Exercise Vital Sign Answer Date Recorde d On average, how many days pe r week do you engage in moderate to strenuous exercise (like a brisk walk)? 0 days 12/13/2023 On average, how many minutes do you engage in exercise at this level? 0 min 12/13/2023 Hunger Vital Sign Answer Date Recorded Within the past 12 months, y ou worried that your food would run out before you got the money to buy more. Never true 12/13/19 24 Within the past 12 months, t he food you bought just didn't last and you didn't have money to get more. Never true 12/13/2023 PRAPARE - Transportation Answer Date Re corded In the past 12 months, has l ack of transportation kept you from medical appointments or from getting medications? No 04/2023 In the past 12 months, has l ack of transportation kept you from meetings, work, or from getting things needed for daily living? No 12/13/2023 Housing Stability Vital Sign Answer Ector e Recorded In the last 12 months, was t here a time when you were not able to pay the mortgage or rent on time? No 12/13/2023 In the past 12 months, how m any times have you moved where you were living? 0 12/13/2023 At any time in the past 12 m onths, were you homeless or living in a long term (including now)? 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 Legal Sex Female 8:08 PM CDT Gender Identity Not on file Sexual Orientation Not on file Occupation Industry Job Start Date Job End Date Not on file Not on file Not on file Not on file Last Filed Vital Signs Vital Sign Reading Time Taken Comments Blood Pressure 139/78 11/13/2024 10:13 AM CDT Pulse 63 11/13/2024 10:13 AM CDT Temperature 37.1 C (98.8 F) 11/13/2024 10:13 AM CDT Respiratory Rate 18 11/13/2024 10:13 AM CDT Oxygen Saturation 96% 11/13/2024 10:13 AM CDT Inhaled Oxygen Concentration - - Weight 71.5 kg (157 lb 9.6 oz) 11/13/2024 10:13 AM CDT Height 157.5 cm (5' 2) 11/13/2024 10:13 AM CDT Body Mass Index 28.83 11/13/2024 10:13 AM CDT Plan of Treatment Upcoming Encounters Date Type Department Care Team (Late st Contact Info) Description 12/12/2024 11:40 AM CDT Office Visit [facility] [address] [facility], [address] [place] [phone] Parish Merritt MD [address] [place] [address] 01/02/2025 11:30 AM CDT Office Visit [facility] [facility] [address] [place] [address] Karlee Rangel APRN [facility] [address] [place] [address] 02/12/2025 9:20 AM AIRFRAME AND POWERPLANT MECHANIC Office Visit [facility] - [address] [address] Fernandez King MD [facility] [place] [address] Health Maintenance Due Date Last Done Comments Colorectal Cancer Screening Colonoscopy (10 Years) 1954 Kidney Health Evaluation 1954 Diabetes: Retinopathy Eye Exam 1972 Hepatitis C 1972 DTaP, Tdap and Td Vaccines (1 - Tdap) 1973 Zoster Vaccines (1 of 2) 2004 Annual Medicare Wellness Visit 10/29/2019 Dexa Scan (General) 10/01/2020 10/01/2018, 9 ASCVD LDL 07/04/2024 07/05/2023, 02/0 07/2023, 10/01/2021, Additional history exists Lipid Panel 07/04/2024 07/05/2023, 02/0 07/2023, 10/01/2021, Additional history exists COVID-19 Vaccine ( season) 2024 02/29/2024, 01/12/2023, 12/29/2021, Additional history exists Hemoglobin A1C 05/13/2025 11/13/2024, 2 06/2023, 10/01/2021, Additional history exists Mammogram Screening 05/24/2026 05/24/2024, 05/11/2023, 05/06/2022, Additional history exists RSV Immunization or 60+ Years Completed 02/22/2023 PHQ-2 (Physician [place]) Completed 11/13/2024 Pneumococcal Vaccine: 50+ Years Completed 11/13/2024 Meningococcal B Vaccine Aged Out No l onger eligible based on patient's age to complete this topic Meningococcal Vaccine Aged Out No roddy angela eligible based on patient's age to complete this topic RSV Immunizations Under 20 Months Aged Out No longer eligible based on patient's age to complete this topic Goals Goal Patient Goal Type Associated Problems Recent Progress Patient-Stated? Author Family - family caregiver with be involved in care transitions and discharge planning General No Tiffanie Guzman, HOE RUNNER Health - patient able to perform ADLs independently Lifestyle No Radha Wen, RN Medical Devices Implanted Type Area Monomer Recovery Operator Device Identifier Shelf Expiration Date Model / Serial / Lot Filler Bone 5cc 12.5cc Calcium Sulfate Stimulan Rapid Cure - [id number] Implanted:Qt y: 1 on 12/13/2023 by Parish Merritt MD at [facility] Bone N/A: Spine Lumbar [employer] [id number] 10/10/2025 [id number] / / [id number] Description:Mixed with tobra mycin 120mg and vancomycin 500mg Putty Eunice Matrix Dbm/Dbf Bone 6cc - [id number] Implanted:Qt y: 1 on 12/13/2023 by Parish Merritt MD at [facility] Bone N/A: Spine Lumbar [employer] [id number] 08/29/2025 [id number] / [id number] / Graft Infuse Bone Small - [id number] Implanted:Qt y: 1 on 12/13/2023 by Parish Merritt MD at [facility] Bone N/A: Spine Lumbar [employer] [id number] 05/11/2025 [id number] / / [id number] 4.75 X 55mm Arnold Implanted:Qt y: 1 on 12/13/2023 by Parish Merritt MD at [facility] Arnold N/A: Spine Lumbar [employer] [id number] / / Description:LEFT SIDE 4.75mm X 60mm Arnold Implanted:Qt y: 1 on 12/13/2023 by Parish Merritt MD at [facility] Arnold N/A: Spine Lumbar [employer] [id number] / / Description:RIGHT 7.5mm X 40mm Screw Implanted:Qt y: 5 on 12/13/2023 by Parish Merritt MD at [facility] Screw N/A: Spine Lumbar [employer] [id number] / / 7.5mm X 35mm Screw Implanted:Qt y: 1 on 12/13/2023 by Parish Merritt MD at [facility] Screw N/A: Spine Lumbar [employer] [id number] / / Voyage Set Screws Implanted:Qt y: 6 on 12/13/2023 by Parish Merritt MD at [facility] Screw N/A: Spine Lumbar [employer] [id number] / / Interbody Cage, 7 Short Implanted:Qt y: 1 on 12/13/2023 by Parish Merritt MD at [facility] Spine Components N/A: Spine Lumbar [employer] [id number] 11/17/2031 [id number] / / [id number] Description:L3-4 Interbody Cage, 9 Short Implanted:Qt y: 1 on 12/13/2023 by Parish Merritt MD at [facility] Spine Components N/A: Spine Lumbar [employer] [id number] 05/29/2031 [id number] / / [id number] Description:L4-5 Procedures Procedure Name Priority Date/Time Associated Diagnosis Comments HEMOGLOBIN, GLYCOSYLATED Routine 11/13/2024 Type 2 diabetes mellitus with diabetic neuropathy, without long-term current use of insulin ([facility]) COLLECT.CAPILLARY (FNGR,HEEL,EAR) Routine 11/13/2024 Type 2 diabetes mellitus with diabetic neuropathy, without long-term current use of insulin ([facility]) LIPID PANEL Routine 07/05/2023 6:42 AM CDT from Last 3 Months or Most Recently Relevant to Health Maintenance Results * HEMOGLOBIN, GLYCOSYLATED (11/13/2024) HGB A1C 7.0 % [facility] 11/13/2024 us Fernandez King MD LABORATORY Final Result [facility] [address] [place] [address], * COLLECT.CAPILLARY (FNGR,HEEL,EAR) (11/13/2024) Fernandez King MD PROCEDURES-UNRESULTED Final Re sult [facility] * (ABNORMAL) LIPID PANEL (07/05/2023 6:42 AM CDT) CHOLESTEROL 96 <200 MG/DL 07/05/2023 7:55 AM CDT [facility] TRIGLYCERIDES 155(H) <150 MG/DL 07/05/2023 7:55 AM CDT [facility] HDL 36(L) >40.0 MG/DL 07/05/2023 7:55 AM CDT [facility] LDL (CALCULATED) 29 <100 MG/DL 07/05/2023 7:55 AM CDT [facility] NON HDL CHOLESTEROL 60 <130 MG/DL 07/05/2023 7:55 AM CDT [facility] CHOL/HDL RATIO 2.7 0.0 - 4.5 07/05/2023 7:55 AM T [facility] VLDL CALCULATION 31 5 - 55 MG/DL 07/05/2023 7:55 AM T [facility] LIPID INTERPRETATION 07/05/2023 7:55 AM T [facility] Comment: NIH CONCENSUS REPORT RECOMMENDATIONS: ADULT CHILD LOW RISK: CHOLESTEROL <200 <170 TRIGLYCERIDE <150 --- HDL >=60 --- LDL <100 <110 BORDERLINE: CHOLESTEROL 200-239 170-199 TRIGLYCERIDE 150-199 --- HDL 40-59 --- LDL 100-159 110-129 HIGH RISK: CHOLESTEROL >=240 >=200 TRIGLYCERIDE >=200 --- HDL <40 --- LDL >=160 >=130 07/05/2023 6:42 AM CDT us Andrew Sethi MD LABORATORY Final Resul t [facility] [address] [place] [address], [place] [phone] from Last 3 Months or Most Recently Relevant to Health Maintenance Insurance [facility] [place] [address] Advance Directives * Full Code (Latest Code Status on File) Date Activated Date Inactivated Comments 12/13/2023 12:11 PM 12/15/2023 5:57 PM * Full Code Date Activated Date Inactivated Comments 07/04/2023 4:55 PM 07/05/2023 7:43 PM * Full Code Date Activated Date Inactivated Comments 07/04/2023 1:19 AM 07/04/2023 4:55 PM * Full Code Date Activated Date Inactivated Comments 12/16/2019 4:40 PM 12/17/2019 3:34 PM * Full Code Date Activated Date Inactivated Comments 12/13/2019 5:13 PM 12/16/2019 4:40 PM Care Teams Client Services Assistant Relationship Specialty Start Date End Date Fernandez King MD [address] [place] [phone] PCP - General FAMILY PRACTICE 11/13/24 Denny Martinez MD [address] [facility] [address] [place] [address] Consulting Physician ENDOCRINOLOGY 10/11/18 Marvel Del Rio MD [address] [facility] [address] [place] [phone] [place] Mailroom Associate CARDIOVASCULAR DISEASE 04/18/19 Maria G Sauer MD [address] [facility] [address] [place] [phone] INTERNAL MEDICINE 10/30/23
--- OUTSIDE RECORDS SUMMARY | 2024-11-15 07:46 | XMS_ITS | Encounter Summary ---
Author Organization [facility] Address [address] [place] [address] Care Team Providers Care Biological Science Aide Name Role Phone Unavailable Primary Care Provider Unavailabl e Encounter Details Date Type Department Care Team (Late st Contact Info) Description 05/13/2004 Outpatient Historical [facility] Internal Medicine 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
--- OUTSIDE RECORDS SUMMARY | 2024-11-15 07:46 | XMS_ITS | Encounter Summary ---
Author Organization [facility] Address [address] [place] [address] Care Team Providers Care Hollow Ware Maker Name Role Phone Unavailable Primary Care Provider Unavailabl e Encounter Details Date Type Department Care Team (Late st Contact Info) Description 06/09/2003 Outpatient Historical [facility] Internal Medicine 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
--- OUTSIDE RECORDS SUMMARY | 2024-11-15 07:46 | XMS_ITS | Encounter Summary ---
Author Organization [facility] Address [address] [place] [address] Care Team Providers Care Deputy Sheriff Bailiff Name Role Phone Unavailable Primary Care Provider Unavailabl e Encounter Details Date Type Department Care Team (Late st Contact Info) Description 06/09/2003 Outpatient Historical [facility] Internal Medicine [address] [place] [address] Jason Dao MD [address] [facility] [address] [place] [address] Social History Tobacco Use Types Packs/Day Years Used Date Smoking Tobacco: Never Assessed Comments Unknown Sex and Gender Information Value Date Recorded Sex Assigned at Not on file Legal Sex Female 2:56 AM ATTIC BLOWER Gender Identity Not on file Sexual Orientation Not on file documented as of this encounter Plan of Treatment Not on file documented as of this encounter Visit Diagnoses Not on filedocumented in this encounter
--- OUTSIDE RECORDS SUMMARY | 2024-11-15 07:46 | XMS_ITS | Encounter Summary ---
Author Organization [facility] Address [address] [place] [address] Care Team Providers Care Electric Arc Furnace Operator Name Role Phone Unavailable Primary Care Provider Unavailabl e Encounter Details Date Type Department Care Team (Late st Contact Info) Description 11/08/2004 Outpatient Historical [facility] Internal Medicine 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
--- OUTSIDE RECORDS SUMMARY | 2024-11-15 07:46 | XMS_ITS | Encounter Summary ---
Author Organization [facility] Address [address] [place] [address] Care Team Providers Care Trailer Technician Name Role Phone Iggy Grier MD Primary Care Provider Unavail able Facundo Mendoza MD Unavailable [phone] Skyla Thompson MD Unavailable [phone] Denny Martinez MD Unavailable [phone] Marvel Del Rio MD Unavailable [phone] Maria G Sauer MD Unavailable [phone] Fernandez King MD Primary Care Provider [phone] Encounter Details Date Type Department Care Team (Late st Contact Info) Description 05/21/2018 [facility] at [address] [address] Kenyetta Coe MA Social History Tobacco Use [...] Sex Assigned at Female 05/06/2024 10:24 AM MANAGER DISTRIBUTION CENTER Legal Sex Female 8:08 PM CDT Gender Identity Not on file Sexual Orientation Not on file documented as of this encounter Plan of Treatment Upcoming Encounters Date Type Department Care Team (Late st Contact Info) Description 12/12/2024 11:40 AM CDT Office Visit [facility] Multis[facility]ialty Care - [facility] [address] [facility], [address] [place] [address] Parish Merritt MD 3 [facility] [place] [address] 01/02/2025 11:30 AM CDT Office Visit [facility] [place] [address] Karlee Rangel APRN [address] [facility]. [address] [place] [address] 02/12/2025 9:20 AM MANAGER DISTRIBUTION CENTER Office Visit [facility] Family Medicine - [place] [address] [place] [address] Fernandez King MD [address] [facility] [place] [address] documented as of this encounter Procedures Procedure Name Priority Date/Time Associated Diagnosis Comments FREE T3 Routine 06/01/2018 COMPREHENSIVE METABOLIC PANEL Routine 06/01/2018 LIPID PANEL Routine 06/01/2018 HEMOGLOBIN, GLYCOSYLATED Routine 06/01/2018 THYROXINE, FREE (FT4) Routine 06/01/2018 THYROID STIM HORMONE TSH Routine 06/01/2018 LIPID PANEL Routine 12/01/2008 CBC (OUTSIDE LAB) Routine 11/30/2008 BNP Routine 11/30/2008 COMPREHENSIVE METABOLIC PANEL Routine 11/30/2008 MAGNESIUM Routine 11/30/2008 documented in this encounter Results * FREE T3 (06/01/2018) FREE T3 10.7 06/01/2018 [facility] Final Result * HEMOGLOBIN, GLYCOSYLATED (06/01/2018) HGB A1C 7.5 06/01/2018 us [facility] Final Result * LIPID PANEL (06/01/2018) CHOLESTEROL 154 HDL 34 TRIGLYCERIDES 328 LDL (CALCULATED) 54 06/01/2018 us [facility] Final Result * (ABNORMAL) COMPREHENSIVE METABOLIC PANEL (06/01/2018) SODIUM S/P/B 141 POTASSIUM S/P/B 4.5 CO2 25 CHLORIDE S/P/B 100 GLUCOSE 139 mg/dL CALCIUM S/P/B 9.5 BUN 13 CREATININE S/P/B 0.67 0.5 - 1.0 EGFR AFR. AMER. 108(A) <=90 EGFR NON-AFR. AMER. 94(A) <=90 ALKALINE PHOSPHATASE S/P/B 119 ALT 37 AST 26 BILIRUBIN TOTAL S/P/B 0.6 ALBUMIN S/P/B 4.2 3.5 - 5.0 TOTAL PROTEIN S/P/B 6.9 GLOBULIN 2.7 06/01/2018 us [facility] Final Result * THYROXINE, FREE (FT4) (06/01/2018) Pathologist [facility] FREE T4 <0.11 06/01/2018 us Doc [facility] Final Result * THYROID STIM HORMONE, TSH (06/01/2018) Pathologist [facility] TSH 0.234 06/01/2018 us [facility] Final Result * LIPID PANEL (12/01/2008) Pathologist [facility] CHOLESTEROL 196 HDL 28.8 TRIGLYCERIDES 267 DIRECT LDL 125 12/01/2008 us Doc [facility] Final Result * CBC (OUTSIDE LAB) (11/30/2008) Pathologist [facility] WBC 11.0 HGB 12.1 HCT 37.5 PLT 329 11/30/2008 us Doc [facility]TSIDE/ABSTRACTED Final Result * BNP (11/30/2008) Pathologist [facility] B TYPE NATRIURETIC PEPTIDE <5.0 11/30/2008 us Doc [facility] Final Result * MAGNESIUM (11/30/2008) Pathologist [facility] MAGNESIUM 2.17 11/30/2008 us Doc [facility] Final Result * (ABNORMAL) COMPREHENSIVE METABOLIC PANEL (11/30/2008) Pathologist [facility] SODIUM S/P/B 135.9 POTASSIUM S/P/B 4.26 CO2 25.2 CHLORIDE S/P/B 103 GLUCOSE 121 mg/dL CALCIUM S/P/B 9.3 BUN 17 CREATININE S/P/B 9.3(A) 0.5 - 1.0 ALKALINE PHOSPHATASE S/P/B 93 ALT 34 AST 35 BILIRUBIN TOTAL S/P/B 0.9 ALBUMIN S/P/B 3.8 3.5 - 5.0 TOTAL PROTEIN S/P/B 6.9 11/30/2008 us Doc [facility] Final Result documented in this encounter Visit Diagnoses Not on filedocumented in this encounter Care Teams Trailer Technician Relationship Specialty Start Date End Date Iggy Grier MD PCP - General INTERNAL MEDICINE 04/25/18 11/12/24 Fernandez King MD [address] [place] [id number] PCP - General FAMILY PRACTICE 11/13/24 Facundo Mendoza MD [place] Fraud Representative CARDIOVASCULAR DISEASE 05/09/18 04/17/19 Skyla Thompson MD Consulting Physician ENDOCRINOLOGY 06/11/18 08/10/18 [place] [address] [place] [address] Consulting Physician ENDOCRINOLOGY 10/11/18 Marvel Del Rio MD 3 [facility] [address] [place] [address] [place] Fraud Representative CARDIOVASCULAR DISEASE 04/18/19 Maria G Sauer MD 3 [facility] [address] [place] [address] INTERNAL MEDICINE 10/30/23 documented as of this encounter
--- OUTSIDE RECORDS SUMMARY | 2024-11-15 07:46 | XMS_ITS | Encounter Summary ---
Author Organization [facility] Address [address] [place] [address] Care Team Providers Care Business Law Teacher Name Role Phone Iggy Grier MD Primary Care Provider Unavail able Denny Martinez MD Unavailable [phone] Marvel Del Rio MD Unavailable [phone] Maria G Sauer MD Unavailable [phone] Fernandez King MD Primary Care Provider [phone] Encounter Details Date Type Department Care Team (Late st Contact Info) Description 12/18/2019 Hospital Follow-up Call [facility] [place] [address] Selam Tan RN Social History Tobacco Use Types Packs/Day Years [...] Sex Assigned at Female 05/06/2024 10:24 AM COMMUNICATIONS LEAD Legal Sex Female 8:08 PM CDT Gender Identity Not on file Sexual Orientation Not on file Occupation Industry Job Start Date Job End Date Not on file Not on file Not on file Not on file COVID-19 Exposure Response Date Recorded In the last month, have you been in contact with someone who was confirmed or suspected to have Coronavirus / COVID-19? No / Unsure 12/16/2019 3:05 PM CDT documented as of this encounter Functional Status [...] 5:49 PM CDT Michelle Montoya RN Active documented as of this encounter Mental Status * Because of a physical, mental, or emotional condition, do you have serious difficulty concentrating, remembering, or making decisions? Answer Entry Date Author Status No 12/13/2019 5:49 PM CDT Michelle Montoya RN Active documented in this encounter Plan of Treatment Upcoming Encounters Date Type Department Care Team (Late st Contact Info) Description 12/12/2024 11:40 AM CDT Office Visit [facility] Mult[facility]pecialty Care - [facility] [address] [facility], [address] [place] [address] Parish Merritt MD 3 [place] [address] 01/02/2025 11:30 AM CDT Office Visit [facility] THREE [facility], [address] [place] [address] Karlee Rangel, KULDEEP Three [facility] [address] [place], [place] [id number] 02/12/2025 9:20 AM COMMUNICATIONS LEAD Office Visit [facility] Medical [facility] Family Medicine - [address] [address] Fernandez King MD [address] [place] [address] documented as of this encounter Goals Goal Patient Goal Type Associated Problems Recent Progress Patient-Stated? Author Family - family caregiver with be involved in care transitions and discharge planning General No Tiffanie Guzman, FULL TIME STAFF INTERPRETER documented as of this encounter Visit Diagnoses Not on filedocumented in this encounter Care Teams Business Law Teacher Relationship Specialty Start Date End Date Iggy Grier MD PCP - General INTERNAL MEDICINE 04/25/18 11/12/24 Fernandez King MD [address] [place] [address]. [place] [address] PCP - General FAMILY PRACTICE 11/13/24 Denny Martinez MD [address] [facility] [address] [place] [address] Consulting Physician ENDOCRINOLOGY 10/11/18 Marvel Del Rio MD 3 [facility] [address] [place] [address] [place] Toy Assembler CARDIOVASCULAR DISEASE 04/18/19 Maria G Sauer MD 3 [facility] [address] [place] [address] INTERNAL MEDICINE 10/30/23 documented as of this encounter
--- OUTSIDE RECORDS SUMMARY | 2024-11-15 07:46 | XMS_ITS | Encounter Summary ---
Author Organization [facility] Address [address] [place] [address] Care Team Providers Care Dealership General Manager Name Role Phone Unavailable Primary Care Provider Unavailabl e Encounter Details Date Type Department Care Team (Late st Contact Info) Description 11/25/2003 Outpatient Historical [facility] Internal Medicine [address] [place] [address] Jason Dao MD [address] [facility] [address] [place] [address] Social History Tobacco Use Types Packs/Day Years Used Date Smoking Tobacco: Never Assessed Comments Unknown Sex and Gender Information Value Date Recorded Sex Assigned at Not on file Legal Sex Female 2:56 AM CMO Gender Identity Not on file Sexual Orientation Not on file documented as of this encounter Plan of Treatment Not on file documented as of this encounter Visit Diagnoses Not on filedocumented in this encounter
--- OUTSIDE RECORDS SUMMARY | 2024-11-15 07:46 | XMS_ITS | Clinical Summary ---
Author Organization [facility] Address [address] [facility] [address] Mitchell[address]: Epic Prelude ADT [place] [address] Care Team Providers Care Duct Layer Helper Name Role Phone Unavailable Primary Care Provider Unavailabl e Social History Tobacco Use Types Packs/Day Years Used Date Smoking Tobacco: Never Assessed Comments Unknown Sex and Gender Information Value Date Recorded Sex Assigned at Not on file Legal Sex Female 2:56 AM MANAGER LAB Gender Identity Not on file Sexual Orientation Not on file Plan of Treatment Health Maintenance Due Date Last Done Comments DTAP/TDAP/TD VACCINES (1 - Tdap) 1973 BREAST CANCER SCREENING 1994 COLORECTAL SCREENING 10/29/1999 Colorectal Cancer Screening 10/29/1999 FIT-DNA Q 3 years 10/29/1999 FIT/FOBT Q 1 year 10/29/1999 Flex Sig/CT Colonography Q 5 years 10/29/1999 PNEUMOCOCCAL VACCINE 50+ YEARS (1 of 1 - PCV) 10/29/19 05 ZOSTER VACCINE (1 of 2) 2004 OSTEOPOROSIS SCREENING 10/29/2019 INFLUENZA VACCINE (#1) 2024 RSV VACCINE (60+ or ) (1 - 1-dose 75+ series) 2029
--- OUTSIDE RECORDS SUMMARY | 2024-11-15 07:46 | XMS_ITS | Encounter Summary ---
Author Organization [facility] Address [address] [place] [address] Care Team Providers Care Product Marketing Director Name Role Phone Unavailable Primary Care Provider Unavailabl e Encounter Details Date Type Department Care Team (Late st Contact Info) Description 07/22/2003 Outpatient Historical [facility] Internal Medicine [address] [place] [address] Jason Dao MD [address] [facility] [address] [place] [address] Social History Tobacco Use Types Packs/Day Years Used Date Smoking Tobacco: Never Assessed Comments Unknown Sex and Gender Information Value Date Recorded Sex Assigned at Not on file Legal Sex Female 2:56 AM BRAIDING OPERATOR Gender Identity Not on file Sexual Orientation Not on file documented as of this encounter Plan of Treatment Not on file documented as of this encounter Visit Diagnoses Not on filedocumented in this encounter
--- OUTSIDE RECORDS SUMMARY | 2024-11-15 07:46 | XMS_ITS | Encounter Summary ---
Author Organization [facility] Address [address] [place] [address] Care Team Providers Care Supervisor Customer Records Division Name Role Phone Unavailable Primary Care Provider Unavailabl e Encounter Details Date Type Department Care Team (Late st Contact Info) Description 07/22/2003 Outpatient Historical [facility] Internal Medicine [address] [place] [address] Jason Dao MD [address] [facility] [address] [place] [address] Social History Tobacco Use Types Packs/Day Years Used Date Smoking Tobacco: Never Assessed Comments Unknown Sex and Gender Information Value Date Recorded Sex Assigned at Not on file Legal Sex Female 2:56 AM SUGAR COATING HAND Gender Identity Not on file Sexual Orientation Not on file documented as of this encounter Plan of Treatment Not on file documented as of this encounter Visit Diagnoses Not on filedocumented in this encounter
--- OUTSIDE RECORDS SUMMARY | 2024-11-15 07:46 | XMS_ITS | Encounter Summary ---
Author Organization [facility] Address [address] [place] [address] Care Team Providers Care Medical Assistant Secretary Name Role Phone Iggy Grier MD Primary Care Provider Unavail able Denny Martinez MD Unavailable Marvel Del Rio MD Unavailable [phone] Maria G Sauer MD Unavailable [phone] Fernandez King MD Primary Care Provider [phone] Encounter Details Date Type Department Care Team (Late st Contact Info) Description 05/04/2021 [employer] Message Enc [facility] THREE [address] [address] [place], [facility] Provider lab results Social History Tobacco Use Types Packs/Day Years [...] Sex Assigned at Female 05/06/2024 10:24 AM TALENT PARTNER Legal Sex Female 8:08 PM CDT Gender [...] have Coronavirus / COVID-19? No / Unsure 04/12/2021 7:36 AM TALENT PARTNER documented as of this encounter Functional Status [...] Description 12/12/2024 11:40 AM CDT Office Visit [facility] Multispecialty Care - [facility] 3 [facility], [address] [place] [address] Parish Merritt MD 3 [place] [address] 01/02/2025 11:30 AM CDT Office Visit [facility] THREE [facility], [address] [place], [place] [phone] Karlee Rangel, KULDEEP Three [facility] [address] [place], [place] [phone] 02/12/2025 9:20 AM TALENT PARTNER Office Visit [facility] Family Medicine - [address] [address] Fernandez King MD [address] [place] [address] documented as of this encounter Goals Goal Patient Goal Type Associated Problems Recent Progress Patient-Stated? Author Family - family caregiver with be involved in care transitions and discharge planning General Tiffanie Rueda, COSMETIC SALES ADVISOR documented as of this encounter Visit Diagnoses Not on filedocumented in this encounter Care Teams Medical Assistant Secretary Relationship Specialty Start Date End Date Iggy Grier MD PCP - General INTERNAL MEDICINE 04/25/18 11/12/24 Fernandez King MD [address] [place] [address]. [place] [address] PCP - General FAMILY PRACTICE 11/13/24 Denny Martinez MD [address] [facility] [address] [place] [address] Consulting Physician ENDOCRINOLOGY 10/11/18 Marvel Del Rio MD 3 [facility] [address] [place] [address] [place] [employer] Finisher CARDIOVASCULAR DISEASE 04/18/19 Maria G Sauer MD 3 [facility] [address] [place] [address] INTERNAL MEDICINE 10/30/23 documented as of this encounter
--- OUTSIDE RECORDS SUMMARY | 2024-11-15 07:46 | XMS_ITS | Clinical Summary ---
Author Organization [facility] Address [address] [facility] [place] [address] Care Team Providers Care Manager Copy Name Role Phone Vijay Grier MD Unavailable [phone] Iggy Grier MD Primary Care Provider [phone] Source Comments [facility],non-owned Affiliates and Associated Physician Practices is amultiple site organization consisting of ambulatory clinics and hospital sitesin [place], [place], [place] and [place]. This disclosure is being madepursuant to the Care Everywhere program and may not contain all information available regarding this patient. Last updated 17.[facility] Allergies Active Allergy Reactions Criticality Noted Date Comments Lisinopril Itching,Shortness of Breath High 05/24/2016 Breathing Difficulty Sulfa Drugs Rash 08/03/2009 Medications * Be aware that medications may not be up to date on this document. Alwaysverify current medications with the patient. metformin (GLUCOPHAGE) 500 MG tablet Take 500 mg by mouth 3 times daily with meals. Active diltiazem coated beads 24hr (CARDIZEM CD) 120 MG capsule Take 1 (one) capsule by mouth once daily Active fluticasone propionate (FLONASE) 50 MCG/ACT nasal spray [place] 1 (one) spray into each nostril as needed Active PROAIR HFA 108 (90 Base) MCG/ACT inhaler INL 1 TO 2 PFS PO Q 4 TO 6 H 0 07/01/19 19 Active nitroGLYCERIN (NITROSTAT) 0.4 MG tablet Dissolve 1 (one) tablet under the tongue once daily 05/19/19 19 Active atorvastatin (LIPITOR) 40 MG tablet 01/15/20 21 Active ACCU-CHEK AMOR PLUS test strip 01/02/20 21 Active isosorbide mononitrate CR 24hr (IMDUR) 30 MG tablet 01/20/20 21 Active losartan (COZAAR) 100 MG tablet 01/15/20 21 Active liothyronine 5 MCG capsule Take 1 (one) capsule by mouth 04/16/19 25 Active levothyroxine (Synthroid) 50 MCG tablet Take 1 (one) tablet by mouth 12/25/19 24 Active Semaglutide (Ozempic, 0.25 or 0.5 MG/DOSE,) 2 MG/1.5ML SOPN Inject 0.5 mg subcutaneously 12/25/19 24 Active valACYclovir (Valtrex) 500 MG tablet TAKE 1 TABLET BY MOUTH TWICE DAILY FOR 3 DAYS DURING OUTBREAKS 18 tablet 3 04/16/19 25 Active Immunizations Immunization Administration Dates Next Due [employer] 12+YR 30MCG/0.3mL 01/12/2023 Family History Medical History Relation Name Comments Cancer Mother unk. primary; ? uterine Heart Failure Mother Cancer - Breast Neg Hx Cancer - Ovarian Neg Hx Relation Name Status Comments Mother Social History Tobacco Use Types Packs/Day Years Used Date Smoking Tobacco: Never Smokeless Tobacco: Never Tobacco Cessation:Counseling Given: Not Answered Alcohol Use Standard Drinks/Week Comments No 0 (1 standard drink = 0.6 oz pur e alcohol) PHQ-2 Answer Date Recorded Patient Health Questionnaire-2 Score 0 04/16/2024 Comments No Sex and Gender Information Value Date Recorded Sex Assigned at Female 04/05/2021 11:38 AM MANAGER CONSUMER Legal Sex Female 6:19 AM MANAGER CONSUMER Gender Identity Female 04/05/2021 11:38 AM MANAGER CONSUMER Sexual Orientation Straight 04/05/2021 11 :38 AM MANAGER CONSUMER Last Filed Vital Signs Vital Sign Reading Time Taken Comments Blood Pressure 122/76 04/16/2024 9:43 AM MANAGER CONSUMER Pulse 69 08/04/2009 9:36 AM CDT Temperature - - Respiratory Rate - - Oxygen Saturation 98% 08/04/2009 9:36 AM CDT Inhaled Oxygen Concentration - - Weight 74.8 kg (165 lb) 05/24/2024 12:58 PM CDT Height 157.5 cm (5' 2) 05/24/2024 12:58 PM CDT Body Mass Index 30.18 05/24/2024 12:58 PM CDT Plan of Treatment Upcoming Encounters Date Type Department Care Team (Late st Contact Info) Description 04/22/2025 10:00 AM MANAGER CONSUMER Office Visit [facility] [employer] TECHNOLOGY INSTRUCTOR [address] [place] [address] Bethany Barney MD [address] [place] [address] Health Maintenance Due Date Last Done Comments COLOGUARD (AGES 45-75) - COLON CA SCREENING 1954 COLON MONITORING 1954 COLONOSCOPY - COLON CA SCREENING 1954 CT COLONOGRAPHY - COLON CA SCREENING 1954 Colorectal Cancer Screening 1954 FIT - COLON CA SCREENING 1954 FLEX SIG - COLON CA SCREENING 1954 HEPATITIS C SCREENING 10/23/1972 DTAP/TDAP/TD VACCINES (1 - Tdap) 1973 PNEUMOCOCCAL VACCINE 50+ (1 of 1 - PCV) 2004 ZOSTER VACCINE (1 of 2) 2004 MEDICARE AWV CALENDAR YEAR 2024 COVID-19 VACCINE ( season) 2024 01/12/2023, 12/29/2021, 09/02/2021, Additional history exists INFLUENZA VACCINE (#1) 2024 12/29/2021 MAMMOGRAM 05/24/2026 05/24/2024, 02/2 11/2023, 05/06/2022, Additional history exists Respiratory Syncytial Virus (RSV) Vaccine Pt: or over 60 yrs (1 - 1-dose 75+ series) 2029 BONE DENSITY TESTING Completed 10/01/2018 DEPRESSION SCREENING Completed 04/16/2024, 04/12/19 HEPATITIS B VACCINE Aged Out No longe r eligible based on patient's age to complete this topic HIB VACCINE Aged Out No longer eligi ble based on patient's age to complete this topic HPV VACCINE Aged Out No longer eligi ble based on patient's age to complete this topic MENINGOCOCCAL (Group B) VACCINE SHARED DECISION-MAKING Aged Out No longer eligible based on patient's age to complete this topic MENINGOCOCCAL GROUPS A/C/Y/W VACCINE Aged Out No longer eligible based on patient's age to complete this topic Procedures Procedure Name Priority Date/Time Associated Diagnosis Comments MAMMO BILAT SCREENING W AMBROCIO Routine 05/24/2024 1:00 PM CDT Encounter for screening mammogram for breast cancer from Last 3 Months or Most Recently Relevant to Health Maintenance Results * Mammo Bilat Screening W Ambrocio (05/24/2024 1:00 PM CDT) Anatomical Region Laterality Modality Breast Bilateral Mammography 05/24/2024 1:20 PM CDT Impressions 05/24/2024 1:24 PM CDT IMPRESSION: No mammographic evidence of malignancy in either breast. ASSESSMENT: BIRADS Category 1: Negative mammogram. RECOMMENDATION: Bilateral screening mammogram in one year. Thank you for allowing us to participate in the care of your patient. [facility] utilizes [employer] as a reminder system to notify patients of their next recommended mammogram. > Interpreting Provider: Malinda Marin MD on 05/24/2024 1:24 PM Narrative 05/24/2024 1:24 PM CDT EXAMINATION: Digital screening mammogram. Low-dose full-field digital breast tomosynthesis examination was performed with synthetic 2D images. Computer assisted detection was utilized. DATE: 05/24/2024 1:00 PM PRIOR: 05/11/2023 and prior mammograms dating back to 2020. BREAST PARENCHYMAL DENSITY: There are scattered areas of fibroglandular density. FINDINGS: No suspicious masses, areas of architectural distortion or microcalcifications are evident on synthetic 2D mammogram or tomosynthesis images. There has been no significant interval change since the prior examination. Iggy Grier MD MAMMO ORDERABLES Final Resul t from Last 3 Months or Most Recently Relevant to Health Maintenance Insurance [place] [place] [address] MANAGED MEDICARE ADV MANAGED MEDICARE ADV Care Teams Manager Copy Relationship Specialty Start Date End Date Vijay Grier MD PCP - OBGYN Obstetrics 06/29/12 Iggy Grier MD PCP - General Gastroenterology 07/25/13
--- OUTSIDE RECORDS SUMMARY | 2024-11-15 07:46 | XMS_ITS | Encounter Summary ---
Author Organization [facility] Address [address] [place] [address] Care Team Providers Care Forms Builder Name Role Phone Unavailable Primary Care Provider Unavailabl e Encounter Details Date Type Department Care Team (Late st Contact Info) Description 05/13/2004 Outpatient Historical [facility] Internal Medicine [address] [place] [address] Jason Dao MD [address] [facility] [address] [place] [address] Social History Tobacco Use Types Packs/Day Years Used Date Smoking Tobacco: Never Assessed Comments Unknown Sex and Gender Information Value Date Recorded Sex Assigned at Not on file Legal Sex Female 2:56 AM BLASTING HELPER Gender Identity Not on file Sexual Orientation Not on file documented as of this encounter Plan of Treatment Not on file documented as of this encounter Visit Diagnoses Not on filedocumented in this encounter
--- OUTSIDE RECORDS SUMMARY | 2024-11-15 07:46 | XMS_ITS | Encounter Summary ---
Author Organization [facility] Address [address] [place] [address] Care Team Providers Care Public Relations Sales Marketing Name Role Phone Iggy Grier MD Primary Care Provider Unavail able Denny Martinez MD Unavailable [phone] Marvel Del Rio MD Unavailable [phone] Maria G Sauer MD Unavailable [phone] Fernandez King MD Primary Care Provider [phone] Encounter Details Date Type Department Care Team (Late st Contact Info) Description 04/28/2021 Abstract [facility] [id number] Kenyetta Coe MA Social History Tobacco Use [...] Sex Assigned at Female 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 - [facility] [address] [facility], [address] [place] [phone] Parish Merritt MD [address] [place] [address] 01/02/2025 11:30 AM CDT Office Visit Jose Alberto [facility] [address] [place] [address] Karlee Rangel, POWER SYSTEM ELECTRICAL ENGINEER [facility]. [address] [place], [place] [id number] 02/12/2025 9:20 AM HOT MILL SHEARER Office Visit [facility] Family [facility] - [place] [address] [place] [address] Fernandez King MD [address] [facility] [place] [address] documented as of this encounter Goals Goal Patient Goal Type Associated Problems Recent Progress Patient-Stated? Author Family - family caregiver with be involved in care transitions and discharge planning General Tiffanie Rueda, MANAGER [employer] documented as of this encounter Procedures Procedure Name Priority Date/Time Associated Diagnosis Comments COMPREHENSIVE METABOLIC PANEL Routine 04/17/2023 LIPID PANEL Routine 04/17/2023 FREE T3 Routine 10/01/2021 COMPREHENSIVE METABOLIC PANEL Routine 10/01/2021 LIPID PANEL Routine 10/01/2021 HEMOGLOBIN, GLYCOSYLATED Routine 10/01/2021 THYROXINE, FREE (FT4) Routine 10/01/2021 THYROID STIM HORMONE TSH Routine 10/01/2021 COMPREHENSIVE METABOLIC PANEL Routine 04/27/2021 LIPID PANEL Routine 04/27/2021 documented in this encounter Results * LIPID PANEL (04/17/2023) CHOLESTEROL 122 HDL 41 TRIGLYCERIDES 182 NON HDL CHOLESTEROL 81 LDL (CALCULATED) 55 04/17/2023 Default History Genericprovider LABORATORY Final Result * (ABNORMAL) COMPREHENSIVE METABOLIC PANEL (04/17/2023) SODIUM S/P/B 140 POTASSIUM S/P/B 4.8 CO2 29 CHLORIDE S/P/B 104 GLUCOSE 136 mg/dL CALCIUM S/P/B 10.4 BUN 12 CREATININE S/P/B 0.66 0.5 - 1.0 EGFR NON-AFR. AMER. 95(A) <=90 ALKALINE PHOSPHATASE S/P/B 144 ALT 25 AST 18 BILIRUBIN TOTAL S/P/B 0.9 ALBUMIN S/P/B 4.2 3.5 - 5.0 TOTAL PROTEIN S/P/B 6.8 GLOBULIN 2.6 04/17/2023 Default History Genericprovider LABORATORY Final Result * FREE T3 (10/01/2021) FREE T3 3.3 10/01/2021 us [facility] LABORATORY Final Result * THYROXINE, FREE (FT4) (10/01/2021) FREE T4 1.9 10/01/2021 Doc [facility] LABORATORY Final Result * THYROID STIM HORMONE, TSH (10/01/2021) TSH 0.01 10/01/2021 us [facility] LABORATORY Final Result * HEMOGLOBIN, GLYCOSYLATED (10/01/2021) HGB A1C 5.4 % 10/01/2021 us [facility] LABORATORY Final Result * (ABNORMAL) COMPREHENSIVE METABOLIC PANEL (10/01/2021) SODIUM S/P/B 142 POTASSIUM S/P/B 4.4 CO2 29 CHLORIDE S/P/B 106 GLUCOSE 99 mg/dL CALCIUM S/P/B 9.9 BUN 14 CREATININE S/P/B 0.69 0.5 - 1.0 EGFR NON-AFR. AMER. 96(A) <=90 ALKALINE PHOSPHATASE S/P/B 120 ALT 21 AST 16 BILIRUBIN TOTAL S/P/B 1.1 ALBUMIN S/P/B 4.0 3.5 - 5.0 TOTAL PROTEIN S/P/B 6.5 GLOBULIN 2.5 10/01/2021 us [facility] LABORATORY Final Result * LIPID PANEL (10/01/2021) Pathologist [facility] CHOLESTEROL 105 HDL 37 TRIGLYCERIDES 178 NON HDL CHOLESTEROL 68 LDL (CALCULATED) 43 10/01/2021 us Doc [facility] LABORATORY Final Result * LIPID PANEL (04/27/2021) Pathologist [facility] CHOLESTEROL 135 HDL 40 TRIGLYCERIDES 183 LDL (CALCULATED) 64 04/27/2021 us Doc [facility] LABORATORY Final Result * (ABNORMAL) COMPREHENSIVE METABOLIC PANEL (04/27/2021) SODIUM S/P/B 142 POTASSIUM S/P/B 4.8 CO2 25 CHLORIDE S/P/B 103 GLUCOSE 199 mg/dL CALCIUM S/P/B 10.2 BUN 11 CREATININE S/P/B 0.63 0.5 - 1.0 EGFR AFR. AMER. 108(A) <=90 EGFR NON-AFR. AMER. 94(A) <=90 ALKALINE PHOSPHATASE S/P/B 161 44 - 121 ALT 34 AST 21 BILIRUBIN TOTAL S/P/B 0.7 ALBUMIN S/P/B 4.4 3.5 - 5.0 TOTAL PROTEIN S/P/B 6.9 GLOBULIN 2.5 04/27/2021 us Doc [facility] LABORATORY Final Result documented in this encounter Visit Diagnoses Not on filedocumented in this encounter Care Teams Public Relations Sales Marketing Relationship Specialty Start Date End Date Iggy Grier MD PCP - General INTERNAL MEDICINE 04/25/18 11/12/24 Fernandez King MD [facility] [place] [phone] PCP - General FAMILY PRACTICE 11/13/24 Denny Martinez MD [address] [address] Consulting Physician ENDOCRINOLOGY 10/11/18 Marvel Del Rio MD [address] [facility] [address] [place] [phone] [facility] [employer] CARDIOVASCULAR DISEASE 04/18/19 Maria G Sauer MD [address] [facility] [address] [place] [phone] INTERNAL MEDICINE 10/30/23 documented as of this encounter
--- OUTSIDE RECORDS SUMMARY | 2024-11-15 07:46 | XMS_ITS | Encounter Summary ---
Author Organization [facility] Address [address] [place] [address] Care Team Providers Care Exhibits Coordinator Name Role Phone Unavailable Primary Care Provider Unavailabl e Encounter Details Date Type Department Care Team (Late st Contact Info) Description 11/08/2004 Outpatient Historical [facility] Internal Medicine [address] [place] [address] Jason Dao MD [address] 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
== END 2024-11-15 07:42 | disposition home or self-care (01) ==
PROVIDERS: Visit Provider Internal Medicine Endocrinology, Diabetes & Metabolism
DX: E83.52 Hypercalcemia (principal)
CPT/HCPCS: 78070; A9500